=== PATIENT | male | born 1950 | race Caucasian/White ===

== ENCOUNTER 2018-03-08 11:14 | Emergency (ER) | payer MEDICARE, OTHER ==
[~2018-03-08 11:14] MED LIST: ISOVUE-370 76%-LOCM 1 ML ONE
--- NOTE | 2018-03-08 12:13 | RAD ---
UPRIGHT PORTABLE CHEST 1 VIEW: Date: 03/08/18 HISTORY: 67-year-old male with history of fever, chills, decreased appetite. Patient feels weak. COMPARISON: 09/04/16. FINDINGS: Postop midline sternotomy. Increased linear and interstitial markings bilaterally, particularly in th e mid and lower lung zones, with little overall change from the prior 09/04/16 study. No confluent pn eumonia or pleural effusion. No cardiomegaly. IMPRESSION: Overall stable increased interstitial markings bilaterally. No confluent pneumonia. POS: [facility]
[2018-03-08 12:38] LABS: ALT (SGPT) 11 U/L (8-55); AST (SGOT) 16 U/L (5-34); Albumin 3.7 g/dL (3.4-4.8); Alkaline Phosphatase 70 U/L (40-150); Anion Gap 14 mmol/L (10-20); BUN (Urea Nitrogen) 11 mg/dL (8.4-25.7); Bilirubin, Total 0.5 mg/dL (0.2-1.2); CK (CPK) 25 U/L (30-200); Calc. Creatinine Clearance 0 mL/min (70-130); Carbon Dioxide 27 mmol/L (23-31); Chloride 98 mmol/L (98-107); Estimated GFR-MDRD Greater than 90; Globulin 3.6 g/dL (2.4-3.5); Glucose 150 mg/dL (80-115); Potassium 3.8 mmol/L (3.5-5.1); Protein, Total 7.3 g/dL (5.8-8.1); Sodium 135 mmol/L (136-145)
[2018-03-08 12:41] LABS: CKMB 0.8 ng/mL (0-6.6); Troponin I Less than 0.010 ng/mL (< 0.028)
[2018-03-08 12:42] LABS: Hemoglobin 13.4 g/dL (14.0-18.0); Mean Corpuscular HGB CONC 33.7 g/dL (32.0-36.0); Mean Corpuscular Hemoglobin 31.9 pg (27.0-31.0); Mean Corpuscular Volume 94.6 fl (80.0-94.0); Mean Platelet Volume 7.7 fL (7.4-10.4); Platelet Count 296 thou/uL (130-400); RBC Distribution Width 10.8 % (11.5-14.5)
[2018-03-08] MEDS ORDERED: Metoclopramide HCl 10 MG/2 ML VIAL ONE (12:52)
[2018-03-08] MEDS ORDERED: Dicyclomine 20 MG TAB ONE (12:52)
[2018-03-08] MEDS ORDERED: diphenhydrAMINE 50 MG/ML VIAL ONE (12:52)
[2018-03-08 12:56] LABS: Band 33 % (5-11); Eosinophils 2 % (0-10); Lymphocytes 12 % (21-51); MDiff Complete? YES; Monocytes 5 % (0-10); Myelocyte 1 % (0-0); Neutrophil 43 % (42-75); PLT Morphology Comment Appears Adequate; Reactive Lymphocytes 4 % (0-10); Toxic Granulation SLIGHT
[2018-03-08] MEDS ORDERED: HYDROcodone/Acetaminophen 5/325 mg Tablet ONE (14:13)
--- NOTE | 2018-03-08 14:13 | CT ---
BRAIN CT WITHOUT IV CONTRAST: HISTORY: A 67-year-old male with a history of headache and fever. COMPARISON: 12/23/06. FINDINGS: There is some age-related atrophy and chronic white matter ischemic change. There is an area of ence phalomalacia in the right temporoparietal region, evidence for old infarct change. No significant m ass effect or midline shift. No acute hemorrhage. IMPRESSION: Encephalomalacic changes right posterior temporal and parietal region, evidence for old infarct hernandez e. Minimal atrophy and chronic white matter ischemic change. No mass or bleed or other acute proces s. POS: [facility]
[2018-03-08 15:00] LABS: Bilirubin Negative (Negative); Blood, Urine Negative (Negative); Clarity CLEAR (Clear); Glucose, Urine (Dipstick) Negative (Negative); Leukocyte Negative (Negative); Nitrite Negative (Negative); Protein, Urine (Dipstick) Negative (Neg-Trace)
--- NOTE | 2018-03-08 15:42 | CT ---
CT ABDOMEN AND PELVIS WITH IV CONTRAST: Date: 03-08-18 History: Nausea and diarrhea. Intermittent abdominal pain for the past few weeks. Comparison: None available. FINDINGS: Prominent vascular calcifications seen of the coronary arteries as well as calcification seen in the region of the left atrium. Median sternotomy wires are partially imaged. Small thin walled cysts seen at the right lower lobe with mild linear bibasilar atelectasis or scarri ng. Vascular calcifications are seen in the abdominal aorta and involving the iliac arteries. The liver, spleen, pancreas, bilateral adrenal glands, and kidneys demonstrate a normal CT appearance . There is a punctate calcification adjacent to the common duct within the pancreatic head of uncerta in etiology. This does not appear to represented calcification within the common duct and may be rela braydon to calcification in the pancreas secondary to prior pancreatitis. Urinary bladder is partially distended and demonstrates a normal CT appearance. No free fluid, fluid collection or lymphadenopathy is seen in the abdomen or pelvis. The small bowel is normal in caliber. Degenerative changes are seen in the lumbar spine. IMPRESSION: 1. No acute findings are seen in the abdomen or pelvis. 2. Prominent vascular calcifications as well as prominent calcifications at the periphery of the left atrium of uncertain etiology. 3. Punctate calcification in the region of the pancreatic head adjacent to the common duct which coul d be sequellae of prior pancreatitis. 4. Post-surgical changes as well as degenerative changes involving the lower lumbar spine. POS: [facility]
[2018-03-08 15:53] LABS: Specific Gravity, Urine Greater than 1.060 (1.002-1.036)
--- NOTE | 2018-03-10 14:52 | EKG ---
Test Reason : Blood Pressure : / mmHG Vent. Rate : 079 BPM Atrial Rate : 079 BPM P-R Int : 164 ms QRS Dur : 088 ms QT Int : 398 ms P-R-T Axes : 060 -13 003 degrees QTc Int : 456 ms Normal sinus rhythm Anterior ST-T segment abnormalities seen on EKG from - No acute changes Abnormal ECG Confirmed by KERMIT GARCIA ([id number]), clinical editor AMALIA MADERA ([id number] on 03/10/2018 2:52:00 PM Referred By: Confirmed By:KERMIT GARCIA
== END 2018-03-08 16:00 | disposition home or self-care (01) ==
LOC: ERS 11:14
DX: R11.2 Nausea with vomiting, unspecified (principal); R19.7 Diarrhea, unspecified; E11.9 Type 2 diabetes mellitus without complications; E78.5 Hyperlipidemia, unspecified; I10 Essential (primary) hypertension; F32.9 Major depressive disorder, single episode, unspecified; Z79.899 Other long term (current) drug therapy; Z79.84 Long term (current) use of oral hypoglycemic drugs
CPT/HCPCS: 36415; 70450; 71045; 74177; 80053; 81003; 82550; 82553; 83690; 84484; 85025; 93005; 94760; 96361; 96374; 96375; J1200; J2765

== ENCOUNTER 2018-12-30 00:10 | Outpatient (CLI) | payer MEDICARE, OTHER ==
--- NOTE | 2018-12-30 21:29 | EKG ---
Test Reason : Blood Pressure : / mmHG Vent. Rate : 069 BPM Atrial Rate : 264 BPM P-R Int : 000 ms QRS Dur : 098 ms QT Int : 432 ms P-R-T Axes : 100 005 027 degrees QTc Int : 462 ms Atrial flutter with variable A-V block Prolonged QT Abnormal ECG When compared with ECG of 08-MAR-2018 11:20, Atrial flutter has replaced Sinus rhythm ST no longer depressed in Anterior leads Nonspecific T wave abnormality no longer evident in Inferior leads T wave inversion no longer evident in Anterolateral leads Confirmed by AMBROSIO SENA, SCoral ([id number]) on 12/30/2018 9:28:55 PM Referred By: ANKITA Confirmed By:DR. Rebecca VALENTE MD
== END 2018-12-30 00:11 | disposition home or self-care (01) ==
LOC: LABBT 00:10
PROVIDERS: ATTEND Orthopaedic Surgery
DX: Z01.818 Encounter for other preprocedural examination (principal); M16.12 Unilateral primary osteoarthritis, left hip
CPT/HCPCS: 93005; 93010

== ENCOUNTER 2018-12-30 12:30 | Inpatient (IN) | payer MEDICARE, OTHER ==
[2018-12-30 13:35] LABS: #Basophils 0.1 thou/uL (0.0-0.2); #Eosinphils 0.2 thou/uL (0.0-0.7); #Lymphocytes 1.6 thou/uL (1.20-3.40); #Neutrophils 3.6 thou/uL (1.40-6.50); %Basophils 1.2 % (0.0-1.0); %Eosinophils 2.9 % (0.0-10.0); %Lymphocytes 24.4 % (21.0-51.0); %Monocytes 14.9 % (0.0-10.0); %Neutrophils 56.6 % (42.0-75.0); Hemoglobin 15.2 g/dL (14.0-18.0); Mean Corpuscular HGB CONC 33.4 g/dL (32.0-36.0); Mean Corpuscular Hemoglobin 33.1 pg (27.0-31.0); Mean Corpuscular Volume 99.1 fL (78.0-98.0); Mean Platelet Volume 8.3 fL (7.4-10.4); Platelet Count 189 thou/uL (130-400); RBC Distribution Width 10.9 % (11.5-14.5); White Blood Cell (WBC) Count 6.4 thou/uL (4.8-10.8)
[2018-12-30 13:41] LABS: INR-International Normal Ratio 1.2; Prothrombin Time 14.9 SEC (12.0-14.7)
[2018-12-30 13:57] LABS: Anion Gap 12 mmol/L (10-20); BUN (Urea Nitrogen) 12 mg/dL (8.4-25.7); Calc. Creatinine Clearance 0 mL/min (70-130); Calcium 9.8 mg/dL (7.8-10.44); Carbon Dioxide 27 mmol/L (23-31); Chloride 104 mmol/L (98-107); Estimated GFR-MDRD Greater than 90; Glucose 123 mg/dL (80-115); Potassium 4.3 mmol/L (3.5-5.1); Sodium 139 mmol/L (136-145)
[2019-01-04] MEDS ORDERED: Tranexamic Acid 1,000 MG/10 ML VIAL ONE (05:50)
[2019-01-04] MEDS ORDERED: Sodium Chloride 0.9% 100 ML ONE (05:50)
[2019-01-04] MEDS ORDERED: Vancomycin HCl 1.5 GM in Sodium Chloride 0.9% 250 ML 300 ML IVPB SCH (06:15)
[2019-01-04] MEDS ORDERED: Midazolam HCl 2 mg/2 ml Vial ONE (06:37)
[2019-01-04] MEDS ORDERED: Fentanyl 100 MCG/2 ML VIAL ONE ×2 (06:37→09:11)
[2019-01-04] MEDS ORDERED: Lidocaine 1.5% w/Epi 1:200K 30 ML VIAL (Epid Use) ONE (06:38)
[2019-01-04] MEDS ORDERED: Ropivacaine 0.2% HCl/PF 20 ML ONE (07:35)
[2019-01-04] MEDS ORDERED: Acetaminophen 325 MG TAB PO PRN (08:53)
[2019-01-04] MEDS ORDERED: Promethazine HCl 25 MG/ML VIAL IM PRN ×4 (08:53→10:00)
[2019-01-04] MEDS ORDERED: HYDROcodone/Acetaminophen 10/325 mg Tablet PO PRN ×2 (08:53)
[2019-01-04] MEDS ORDERED: diphenhydrAMINE 25 MG CAP PO PRN ×3 (08:53→10:00)
[2019-01-04] MEDS ORDERED: traMADol HCl 50 MG TAB PO PRN ×2 (08:53→10:00)
[2019-01-04] MEDS ORDERED: Zolpidem Tartrate 5 MG TAB PO PRN ×2 (08:53→10:00)
[2019-01-04] MEDS ORDERED: Ondansetron PF 4 MG/2 ML Vial IVP PRN ×2 (08:53→10:00)
[2019-01-04] MEDS ORDERED: Cyclobenzaprine 10 MG TAB PO PRN (08:55)
[2019-01-04] MEDS ORDERED: Aspirin 81 mg Enteric Coated Tablet PO SCH (09:00)
[2019-01-04] MEDS ORDERED: Promethazine HCl 25 MG/ML VIAL SLOW IVP PRN ×2 (09:01→09:02)
[2019-01-04] MEDS ORDERED: Fentanyl 5 mcg/Bup 0.075% Cadd 100 ML EPIDURAL ONE (09:01)
[2019-01-04] MEDS ORDERED: Ondansetron HCl/PF 4 MG/2 ML Vial IVP PRN ×2 (09:01→09:02)
--- NOTE | 2019-01-04 09:38 | RAD ---
Exam: Left hip 2 views: HISTORY: Postop total hip COMPARISON: 09/24/2018 FINDINGS: Status post total hip replacement. No dislocation or periprostatic fracture. IMPRESSION: Left total hip replacement.
[2019-01-04] MEDS ORDERED: Acetaminophen 500 MG TAB PO PRN (09:45)
[2019-01-04] MEDS ORDERED: Promethazine HCl 25 MG SUPP PR PRN (10:00)
[2019-01-04] MEDS ORDERED: Naloxone HCl 0.4 mg/ml Vial IVP PRN (10:00)
[2019-01-04] MEDS ORDERED: diphenhydrAMINE 50 MG/ML VIAL IVP PRN (10:00)
[2019-01-04] MEDS ORDERED: diphenhydrAMINE 50 MG/ML VIAL IM PRN (10:00)
[2019-01-04] MEDS ORDERED: Hydrocerin (Eucerin) Cream 120 gm Jar TOP PRN (10:00)
[2019-01-04] MEDS ORDERED: Bupivacaine 0.25% 10 ML VIAL EPIDURAL PRN (10:00)
[2019-01-04] MEDS ORDERED: Naloxone HCl 0.4 mg/ml Vial IV PRN (10:00)
--- NOTE | 2019-01-04 10:44 | OP ---
DATE OF PROCEDURE: 01/04/2019 PREOPERATIVE DIAGNOSIS: End-stage bicompartmental osteoarthritis, left hip. POSTOPERATIVE DIAGNOSIS: End-stage bicompartmental osteoarthritis, left hip. PROCEDURE PERFORMED: Press-fit left total hip arthroplasty. SURGEON: Lb Figueroa MD STEEP TENDER: Zeeshan Groves PA-C ANESTHESIA: General via endotracheal tube augmented with indwelling epidural. COMPONENTS USE: [facility] Tritanium size 54 mm press-fit hemispherical cluster hole shell with a 3.5 Accolade press-fit hip stem, 10-degree polyethylene fixed bearing insert, and a -5 ceramic Biolox 36 mm femoral head. FINDINGS: End-stage severe degenerative bicompartmental disease, [id number] arthrosis, periarticular osteophyte formation, large serous effusion, hypertrophic synovium and capsule. DRAINS: None. ESTIMATED BLOOD LOSS: Less than 100. SPECIMENS: None. COMPLICATION: None. COUNTS: Correct. INDICATIONS FOR PROCEDURE: Obdulio is a 68-year-old white male, who has had progressive left hip, groin and thigh pain, problem with standing and walking for the last 5 to 7 years. He has failed conservative management and elected to proceed with total hip arthroplasty as definitive treatment of his pain. PROCEDURE IN DETAIL: After informed consent was obtained in the preoperative holding area, the patient was taken to the operative suite where general anesthesia was induced. The patient was then positioned in the lateral decubitus position. The hip was then prepped and draped in usual sterile fashion. The patient received preoperative antibiotics. Prior to incision, time-out was called and all members of the surgical team agreed upon site, surgeon, and patient. After this, a longitudinal incision was made directly over the trochanter, noted by palpation extending 2 fingerbreadths above and below the trochanter. The deeper subcutaneous layer was undermined with Bovie electrocautery. The iliotibial band was encountered and incised sharply and the plane below this was developed bluntly. A Charnley retractor was placed to hold this opened. The lateral aspect of the trochanter and the abductor muscles were encountered and then reflected anteriorly off the trochanter using Bovie electrocautery. Once this was completed, the anterior capsule was then encountered and identified and copious capsulotomy was carried out, exposing the femoral neck and head. Dislocation maneuver was then performed and an in situ provisional neck cut was then made using the oscillating saw. Attention was then turned to acetabular preparation. Sequential reaming was carried out up to the appropriate diameter and a trial was then malleted into place with good firm resistance and no pullout. The permanent acetabular shell was then malleted squarely into place, as was the appropriate liner. Once completed, the wound was copiously irrigated and attention was then turned to femoral preparation. Flexion and external rotation were performed of the exposed thigh and femoral elevators were then placed at the proximal aspect of the wound. Canal finder was used to establish the length of the canal and sequential reaming was carried out, followed by broaching. Once the appropriate stability was established with the trial broaches with flexion, extension and rotational stability, we did trial with neutral and 2 mm offset incremental necks. Once the appropriate size was decided upon, with good stability noted with flexion, extension, internal and external rotation and shuck being negative, we removed the femoral trial broach and malletted into place the permanent prosthesis with good firm fit, which was also stable to rotation. Again, the hip felt very stable to flexion, extension, internal and external rotation. Leg lengths appeared near anatomic clinically and we were quite happy with prosthesis placement. Copious irrigation was then carried out through the entirety of the wound. Primary closure of the abductors was accomplished with interrupted #2 Vicryl [id number]-oj-iimad stitches and the IT band was then closed with interrupted #2 Vicryl, oversewn with a #2 running barbed Quill stitch. Subcutaneous fascia was closed with running barbed Quill stitch and a subcuticular Monocryl barbed Quill stitch was used for skin closure and augmented with skin cement. A sterile dressing was applied. The procedure was terminated without any complication. All counts were correct. The patient was awakened in the operative suite and taken to the recovery room in stable condition. Job ID: [id number]
[2019-01-04] MEDS: Sodium Chloride 0.9% 1,000 ML IV SCH ×2 (11:15→20:33)
[2019-01-04] MEDS: Carvedilol 25 MG TAB PO SCH ×2 (11:18→20:29)
[2019-01-04] MEDS: Bupropion 150 MG XL TAB PO SCH (11:18)
[2019-01-04] MEDS ORDERED: Ondansetron PF 4 MG/2 ML Vial ONE (13:08)
[2019-01-04] MEDS ORDERED: Lidocaine 1% PF 5 ML VIAL ONE (13:08)
[2019-01-04] MEDS ORDERED: Glycopyrrolate 0.2 MG/ML 5 ML SYRINGE ONE (13:08)
[2019-01-04] MEDS ORDERED: ePHEDrine 50 MG/ML VIAL ONE (13:08)
[2019-01-04] MEDS ORDERED: Rocuronium Bromide 10 MG/ML (10ML VIAL) ONE (13:08)
[2019-01-04] MEDS: Cyanocobalamin (Vitamin B-12) 1,000 MCG TAB PO SCH ×2 (13:36→20:31)
[2019-01-04] MEDS: Aspirin 81 mg Enteric Coated Tablet PO SCH ×2 (13:36→20:28)
[2019-01-04] MEDS: Ubidecarenone 50 MG CAP PO SCH (13:36)
[2019-01-04] MEDS: CEFAZOLIN 2 GM in Premix Bag 1 BAG IVPB SCH ×2 (14:07→21:10)
[2019-01-04] MEDS: HYDROcodone/Acetaminophen 5/325 mg Tablet PO PRN ×2 (14:54→21:09)
[2019-01-04] MEDS: traMADol HCl 50 MG TAB PO PRN ×2 (16:46→23:37)
[2019-01-04] MEDS: metFORMIN 500 MG TAB PO SCH (16:57)
[2019-01-04] MEDS ORDERED: Melatonin 3 MG TAB PO PRN (17:05)
[2019-01-04] MEDS: Cyclobenzaprine 10 MG TAB PO PRN (18:34)
[2019-01-04] MEDS: Lisinopril 5 MG TAB PO SCH (20:30)
[2019-01-04] MEDS: CeleCOXIB 100 MG CAP PO SCH (20:40)
[2019-01-04] MEDS: Citrucel 500 MG TAB PO SCH (21:07)
[2019-01-04] MEDS: Zonisamide 25 MG CAP PO SCH (21:08)
--- NOTE | 2019-01-04 23:39 | CON ---
DATE OF CONSULTATION: 01/04/2019 HISTORY OF PRESENT ILLNESS: The patient is a 68-year-old male, status post left hip arthroplasty for osteoarthritis. The patient reports that he was not able to ambulate due to the pain over the last 5 to 7 years. He has failed conservative management and elected to proceed with total hip arthroplasty as a definitive treatment of his pain. The patient had an uncomplicated procedure, and was transferred up to the third floor for routine postop care. The patient reports that he is in significant amount of pain to his left hip and no other complaints currently. PAST MEDICAL HISTORY: Hypertension, atrial fibrillation, diabetes, anxiety, chronic pain, and osteoarthritis. PAST SURGICAL HISTORY: Previous vertebral fusion 1986 and a three-vessel CABG in 2006. FAMILY HISTORY: Significant for multiple myeloma in his father. Mother healthy in her 90s SOCIAL HISTORY: The patient reported to be a former tobacco user of 18 years; however, he quit about 15 years previously. He reports social alcohol use, usually wine. The patient denies any recreational drugs. HOME MEDICATIONS: 1. Aspirin 81 mg. 2. Garlic 1000 mg p.o. daily. 3. Beetroot 4000 daily. 4. CoQ10 at 300 mg p.o. daily. 5. Glucosamine and chondroitin 1 tablet p.o. daily. 6. Fiber 500 mg p.o. q.p.m. 7. [place] 5/325 one to two tablets p.o. q.6 hours p.r.n. 8. Cyclobenzaprine 5 mg p.o. p.r.n. 9. Tramadol 50 mg p.o. p.r.n. 10. Tylenol Extra Strength one tablet p.o. at bedtime p.r.n. 11. Bupropion 300 mg p.o. q.a.m. 12. Lisinopril 5 mg p.o. q.p.m. 13. Metformin 500 mg p.o. b.i.d. 14. Omeprazole 40 mg p.o. q.p.m. 15. Zonisamide 50 mg p.o. at bedtime. 16. Diltiazem 180 mg p.o. q.p.m. 17. Carvedilol 25 mg p.o. b.i.d. 18. Pradaxa 150 mg p.o. b.i.d. 19. Celebrex 200 mg p.o. q.p.m. 20. Vitamin B12 at 5000 mcg p.o. b.i.d. REVIEW OF SYSTEMS: A 12-point review of systems was otherwise negative unless stated above in the HPI. PHYSICAL EXAMINATION: VITAL SIGNS: Blood pressure 158/80, oxygen saturation of 97% on room air, pulse was 67. No temperature is available. GENERAL: Male, appears stated age, resting in bed, appears to be in moderate amount of pain. HEENT: Normocephalic and atraumatic. CV: Irregular rhythm with regular rate. No murmurs. RESPIRATORY: Clear lungs to auscultation bilaterally. No wheezing. ABDOMEN: Soft and nontender. Bowel sounds are present. EXTREMITIES: Surgical bandage is clean, dry, intact to his left lateral hip region. No edema or erythema present. NEUROLOGIC: No focal deficits. Able to move all 4 extremities. PSYCH: Alert and oriented. SIGNIFICANT LABORATORY DATA: Significant labs: White blood cell count 6.4, hemoglobin 15.2, hematocrit 45.6, and platelet count 189. He had a PT of 14.9 and INR of 1.2. Sodium 139, potassium 4.3, chloride 104, bicarbonate 27, BUN 12, creatinine 0.69, glucose 123, and a calcium of 9.8. ASSESSMENT: 1. Status post left total hip arthroplasty. I will defer management to primary orthopedic team and Dr. Lb Figueroa. Pain control and PT ordered. 2. Hypertension. We will continue his home medications and monitor for any acute changes in blood pressure. He is likely experiencing some elevated blood pressure secondary to pain. Once his pain is under better control, we believe his blood pressure will normalize. 3. Atrial fibrillation. We will resume his home medications; however, we will hold his anticoagulation for today and we will determine restarting his anticoagulation in the near future when recommended safe. 4. Diabetes mellitus. We will continue his metformin. We will check a.c. and at bedtime Accu-Cheks. If well controlled will make no changes for a sliding scale and recommend further followup as an outpatient. 5. Unspecified mood disorder. We will continue his bupropion. PLAN: The patient will be admitted as an inpatient under Dr. Figueroa. This case has been discussed with Dr. Yeyo Hilario, the family practice consulting attending, who is in agreement with our plan. Thank you for allowing us to participate in this patient's care and we look forward to continuing care. Job ID: [id number] MTDOleg
[2019-01-04] MEDS: Fentanyl 5 mcg/Bup 0.075% Cadd 100 ML EPIDURAL SCH (23:57)
[2019-01-05] MEDS: HYDROcodone/Acetaminophen 5/325 mg Tablet PO PRN ×2 (02:04→20:47)
[2019-01-05 04:53] LABS: Mean Corpuscular HGB CONC 32.8 g/dL (32.0-36.0); Mean Corpuscular Hemoglobin 32.5 pg (27.0-31.0); Mean Corpuscular Volume 99.2 fL (78.0-98.0); Mean Platelet Volume 8.4 fL (7.4-10.4); Platelet Count 140 thou/uL (130-400); RBC Distribution Width 10.8 % (11.5-14.5); Red Blood Cell (RBC) Count 4.01 mill/uL (4.70-6.10); White Blood Cell (WBC) Count 8.7 thou/uL (4.8-10.8)
[2019-01-05] MEDS: traMADol HCl 50 MG TAB PO PRN (05:27)
[2019-01-05] MEDS: Cyclobenzaprine 10 MG TAB PO PRN (05:28)
[2019-01-05] MEDS: Sodium Chloride 0.9% 1,000 ML IV SCH ×2 (05:29→19:57)
--- NOTE | 2019-01-05 06:17 | PDOC.FM ---
- Subjective Subjective: Obdulio Gooden seen at bedside this morning. Became tachycardic overnight and EKG was done that showed possible atrial flutter. Dr. Faustin has been notified by the primary team and will come see patient. He is in NSR this morning. Pain adequately controlled. Denies fever, chills, chest pain, dyspnea, n/v. - Objective MAR Reviewed: Yes Vital Signs & Weight: Vital Signs (12 hours) Temp Pulse Resp BP BP Pulse Ox 01/05/19 04:00 98.7 F 101 H 18 135/82 92 L 01/05/19 01:09 128 H 155/96 H 01/04/19 23:24 98.6 F 123 H 18 156/107 H 95 01/04/19 20:30 98.4 F 125 H 16 165/111 H 165/111 H 93 L 01/04/19 18:45 98.4 F Weight Weight 86.183 kg Result Diagrams: 01/05/19 04:19 12/30/18 12:30 Phys Exam - Physical Examination Constitutional: NAD HEENT: moist MMs, sclera anicteric Neck: supple, full ROM Respiratory: no wheezing, no rales, no rhonchi, clear to auscultation bilateral Cardiovascular: RRR, no significant murmur Gastrointestinal: soft, non-tender, no distention Musculoskeletal: pulses present Neurological: non-focal, normal sensation, moves all 4 limbs Psychiatric: normal affect, A&O x 3 Skin: no rash Dx/Plan (1) History of total left hip arthroplasty Code(s): Z96.642 - PRESENCE OF LEFT ARTIFICIAL HIP JOINT Status: Acute (2) Hypertension Code(s): I10 - ESSENTIAL (PRIMARY) HYPERTENSION Status: Chronic (3) Type 2 diabetes mellitus Status: Chronic (4) Atrial fibrillation Code(s): I48.91 - UNSPECIFIED ATRIAL FIBRILLATION Status: Chronic (5) GERD (gastroesophageal reflux disease) Code(s): K21.9 - GASTRO-ESOPHAGEAL REFLUX DISEASE WITHOUT ESOPHAGITIS Status: Chronic (6) Anxiety Code(s): F41.9 - ANXIETY DISORDER, UNSPECIFIED Status: Chronic - Plan Plan: 1) S/p left hip arthroplasty: 01/04/19 - Post Op Management and pain control per primary team - likely d/c tomorrow per primary team 2) Hypertension - Resuming home medications - Monitoring BPs closely 3) DM2 - Resuming home medications - Accuchecks ACHS 4) A fib - episodes of a flutter overnight - likely secondary to post procedural pain and elevated BPs - resuming home diltiazem - continue to monitor - starting lovenox today, will restart pradaxa tomorrow 5) Anxiety - home meds 6) GERD - protonix
--- NOTE | 2019-01-05 08:34 | PRG ---
DATE OF SERVICE: 01/05/2019 SUBJECTIVE: Obdulio is a 68-year-old white male who is postop day 1 from a left total hip arthroplasty. He had a rough night last night. His epidural is functioning, but I am not sure how much benefit it is providing him currently. Discussion with the nursing staff reveals that the patient was reluctant to take his oral medications yesterday evening, and I believe later in the evening and afternoon, he got behind on the pain curve and had a difficult night probably as a result of this. He refused his medication on a couple of occasions and I think his blood levels got little low. Otherwise, he did go in and out of some atrial flutter last night with rates of 130 to 140. EKG was ordered, which demonstrated atrial flutter with a partial block or conduction block, rate of 98. His blood pressures have been up into the 150 to 160 systolic. He was seen by resident physicians yesterday evening and Dr. Mathew also evaluated the patient. He maintained stable vitals throughout the night and I believe ultimately his pain was brought under control with oral medications. OBJECTIVE: VITAL SIGNS: Temperature 98.7, pulse 101, respiratory rate 18 and unlabored, O2 saturation is 92% on room air, and blood pressure is 135/82. GENERAL: He is alert and oriented to person, place, time, and situation, grossly nonfocal, appropriate with examiner. There is no strike through in his incision and he is neurovascular intact in the left lower extremity. LABORATORY DATA: Hemoglobin and hematocrit 13.0 and 39.8. IMPRESSION: 1. A 68-year-old white male, postop day 1, left total hip arthroplasty, doing very well. 2. Pain secondary to left total hip arthroplasty. 3. Atrial flutter with variable block. 4. Mild postoperative hemorrhagic asymptomatic anemia. PLAN: 1. Continue current care. 2. Call Dr. Faustin just to drop and say how did the patient today as a courtesy, then to check in on atrial flutter. 3. Appreciate the residents seeing the patient last night and addressing the patient and family concerns. 4. Recheck tomorrow. Probable discharge home as long as he remains comfortable throughout the rest of his hospital stay. 5. Initiate physical therapy. Job ID: [id number]
[2019-01-05] MEDS ORDERED: Dabigatran 150 mg Capsule PO SCH (09:00)
[2019-01-05] MEDS ORDERED: Enoxaparin Sodium 40 MG/0.4 ML SYRINGE SC SCH (09:30)
[2019-01-05] MEDS: Ubidecarenone 50 MG CAP PO SCH (09:38)
[2019-01-05] MEDS: Cyanocobalamin (Vitamin B-12) 1,000 MCG TAB PO SCH ×2 (09:38→20:40)
[2019-01-05] MEDS: metFORMIN 500 MG TAB PO SCH ×2 (09:40→17:11)
[2019-01-05] MEDS: Bupropion 150 MG XL TAB PO SCH (09:40)
[2019-01-05] MEDS: Multivitamin W/ Minerals 1 TAB PO SCH (09:40)
[2019-01-05] MEDS: Senokot S 8.6-50 MG TAB PO SCH ×2 (09:40→20:44)
[2019-01-05] MEDS: Aspirin 81 mg Enteric Coated Tablet PO SCH ×2 (09:40→20:38)
[2019-01-05] MEDS: Carvedilol 25 MG TAB PO SCH ×2 (09:40→20:39)
[2019-01-05] MEDS: Ferrous Gluconate 324 MG TAB PO SCH ×2 (09:41→17:11)
[2019-01-05] MEDS: CeleCOXIB 100 MG CAP PO SCH (10:50)
--- NOTE | 2019-01-05 11:11 | PRG ---
DATE OF SERVICE: 01/05/2019 SUBJECTIVE: Mr. Gooden is a pleasant 68-year-old man, who underwent a left hip arthroplasty replacement yesterday. We have been asked to follow his atrial fibrillation and blood pressure. This morning, he is actually slightly hypotensive with a systolic blood pressure of 90. He had a run of atrial flutter during the night, but is now in normal sinus rhythm with a rate of 65. We may want to switch his Coreg to metoprolol if he remains with a systolic blood pressure under 100. We would still get good control of atrial fibrillation without diminishing his blood pressure as much as the Coreg. In the event clinically, he is not lightheaded. He is not having any chest discomfort. We will continue to follow with the surgical team. Job ID: [id number]
[2019-01-05] MEDS: Fentanyl 5 mcg/Bup 0.075% Cadd 100 ML EPIDURAL SCH (16:51)
--- NOTE | 2019-01-05 17:08 | EKG ---
Test Reason : STAT Blood Pressure : / mmHG Vent. Rate : 098 BPM Atrial Rate : 267 BPM P-R Int : 000 ms QRS Dur : 098 ms QT Int : 284 ms P-R-T Axes : 000 018 250 degrees QTc Int : 362 ms Atrial flutter with variable A-V block Abnormal ECG When compared with ECG of 30-DEC-2018 12:40, Non-specific change in ST segment in Inferior leads ST now depressed in Anterior leads Nonspecific T wave abnormality now evident in Inferior leads T wave inversion now evident in Anterolateral leads QT has shortened Confirmed by Susy BATEMAN ([id number]) on 01/05/2019 5:08:00 PM Referred By: LAURA JUAN Confirmed By:Susy BATEMAN
--- NOTE | 2019-01-05 20:38 | CON ---
DATE OF CONSULTATION: 01/05/2019 REASON FOR CONSULTATION: Atrial flutter. HISTORY OF PRESENT ILLNESS: Mr. Gooden is a pleasant 68-year-old white gentleman, who comes to the hospital for planned hip replacement. He had been dealing with osteoarthritis of the hip for several years now. Pain was unbearable, so he underwent hip replacement on the 9th of this month, this was yesterday. He did well. Earlier this morning, he developed tachycardia, heart rate in the 150s. EKG was done, showed atrial flutter with variable AV block. He does have a history of atrial fibrillation, but not atrial flutter. He has been on a lot of pain, who is having trouble controlling the pain. He had bypass in the past with left atrial appendage ligation. He has been on Pradaxa all this time as he has never had a re-evaluation of appendage to see if he was completely occluded and in fact required or not anticoagulation. Currently, he denies any chest pain, tightness, or pressure. No palpitations. Heart rate is back down to 60s, but he remained in atrial flutter last time when EKG was checked. PAST MEDICAL HISTORY: 1. Coronary artery disease, status post CABG. 2. History of paroxysmal atrial fibrillation. 3. Osteoarthritis. 4. Hypertension. 5. Anxiety and depression. 6. Type-2 diabetes. PAST SURGICAL HISTORY: 1. Vertebral fusion in 1996. 2. 3-vessel CABG in 2006. 3. Left atrial appendage ligation at the same time, this was done by Dr. Zayas. FAMILY HISTORY: No early coronary artery disease. SOCIAL HISTORY: Former tobacco user, quit about 15 years ago. Social alcohol. No drugs. OUTPATIENT MEDICATIONS: Include: 1. Aspirin 81 a day. 2. Garlic. 3. Beetroot. 4. CoQ10. 5. Glucosamine. 6. Fiber. 7. [place] 5/325 p.r.n. 8. Cyclobenzaprine. 9. Tramadol. 10. Tylenol Extra Strength. 11. Bupropion. 12. Lisinopril 5 mg a day. 13. Metformin 500 mg b.i.d. 14. Omeprazole. 15. Zonisamide. 16. Diltiazem 180 mg q.p.m. 17. Carvedilol 25 mg b.i.d. 18. Pradaxa 150 mg b.i.d. 19. Celebrex. 20. Vitamin B12. REVIEW OF SYSTEMS: A 12-point review of systems was done and was found to be negative unless stated in the history of present illness. PHYSICAL EXAMINATION: VITAL SIGNS: Temperature 98.4, pulse 87, respiratory rate 18, saturating 95% on room air, blood pressure 107/70. GENERAL: Awake, alert, and oriented x3, in no distress. HEENT: Normocephalic, atraumatic. NECK: Supple. LUNGS: Clear. CARDIOVASCULAR: S1 and S2. No S3 or S4. Irregular; however, heart rate in the 60s. ABDOMEN: Soft. Positive bowel sounds. EXTREMITIES: No edema. SKIN: Warm and dry. DIAGNOSTIC DATA: Laboratory work was reviewed. CBC was reviewed. Coags and chemistries were reviewed. EKG was reviewed, atrial flutter with variable AV block. ASSESSMENT AND PLAN: 1. Atrial flutter with variable AV block. This is a new diagnosis. 2. History of paroxysmal atrial fibrillation. 3. History of left atrial appendage ligation during his bypass. 4. History of coronary artery disease, stable at this time. 5. Status post hip replacement. PLAN: 1. Plan is currently to discontinue his pain pump tomorrow and then start full anticoagulation 4 hours afterwards with Pradaxa. I think this is reasonable. Will wait on that to happen, if he remains in atrial flutter tomorrow, we will plan on doing a YING cardioversion on Thursday. 2. We will follow. Job ID: [id number]
[2019-01-05] MEDS: Citrucel 500 MG TAB PO SCH (20:39)
[2019-01-05] MEDS: Dabigatran 150 mg Capsule PO SCH (20:42)
[2019-01-05] MEDS: Lisinopril 5 MG TAB PO SCH (20:43)
[2019-01-05] MEDS: Zonisamide 25 MG CAP PO SCH (20:45)
[2019-01-06] MEDS: Sodium Chloride 0.9% 1,000 ML IV SCH ×3 (04:04→21:20)
[2019-01-06 05:05] LABS: Hemoglobin 12.6 g/dL (14.0-18.0); Mean Corpuscular Hemoglobin 32.5 pg (27.0-31.0); Mean Corpuscular Volume 98.6 fL (78.0-98.0); Mean Platelet Volume 8.8 fL (7.4-10.4); Platelet Count 135 thou/uL (130-400); RBC Distribution Width 10.8 % (11.5-14.5); Red Blood Cell (RBC) Count 3.88 mill/uL (4.70-6.10); White Blood Cell (WBC) Count 8.8 thou/uL (4.8-10.8)
--- NOTE | 2019-01-06 06:33 | PDOC.FM ---
- Subjective Subjective: Obdulio Gooden seen at bedside this morning. He has no complaints, there were no acute events overnight. He remains in a flutter with variable AV block, become tachycardic again overnight but HR is wnl this morning. He has been participating with PT well. Pain pump is being discontinued this morning. He denies fever, chills, chest pain, dyspnea, n/v, abdominal pain, LE edema. - Objective MAR Reviewed: Yes Vital Signs & Weight: Vital Signs (12 hours) Temp Pulse Resp BP Pulse Ox 01/06/19 04:00 98.3 F 77 20 97/62 94 L 01/06/19 00:00 98.3 F 98 20 117/79 95 01/05/19 20:43 87 01/05/19 20:00 97.5 F L 110 H 20 116/79 95 Weight Admit Weight 86.183 kg Weight 86.183 kg I&O: 01/04/19 01/05/19 01/06/19 06:59 06:59 06:59 Intake Total 2760 Output Total 2025 Balance 735 Result Diagrams: 01/06/19 04:20 12/30/18 12:30 Phys Exam - Physical Examination Constitutional: NAD HEENT: moist MMs, sclera anicteric Neck: supple, full ROM Respiratory: no wheezing, no rales, no rhonchi, clear to auscultation bilateral Cardiovascular: no significant murmur, no rub irregular rhythm, normal rate Gastrointestinal: soft, non-tender, no distention Musculoskeletal: no edema, pulses present Neurological: non-focal, normal sensation, moves all 4 limbs Psychiatric: normal affect, A&O x 3 Skin: no rash Dx/Plan (1) History of total left hip arthroplasty Code(s): Z96.642 - PRESENCE OF LEFT ARTIFICIAL HIP JOINT Status: Acute (2) Hypertension Code(s): I10 - ESSENTIAL (PRIMARY) HYPERTENSION Status: Chronic (3) Type 2 diabetes mellitus Status: Chronic (4) Atrial fibrillation Code(s): I48.91 - UNSPECIFIED ATRIAL FIBRILLATION Status: Chronic (5) GERD (gastroesophageal reflux disease) Code(s): K21.9 - GASTRO-ESOPHAGEAL REFLUX DISEASE WITHOUT ESOPHAGITIS Status: Chronic (6) Anxiety Code(s): F41.9 - ANXIETY DISORDER, UNSPECIFIED Status: Chronic (7) Atrial flutter by electrocardiogram Code(s): I48.92 - UNSPECIFIED ATRIAL FLUTTER Status: Acute - Plan Plan: 1) S/p left hip arthroplasty: 01/04/19 - Post Op Management and pain control per primary team - FMR consulted for medical management, appreciate consult 2) Atrial flutter with variable AV block - New diagnosis - 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 been consulted - will monitor rhythm today and if patient remains in A flutter, may get cardioversion on Thursday - currently on lovenox - will resume full anticoagulation with home pradaxa once pain pump is discontinued 2) Hypertension - Resuming home medications - Monitoring BPs closely 3) DM2 - Resuming home medications - Accuchecks ACHS 4) A fib - likely secondary to post procedural pain and elevated BPs - resuming home diltiazem - continue to monitor - starting pradaxa today 5) Anxiety - home meds 6) GERD - protonix Addendum - Attending - Attending Attestation Date/Time: 01/06/19 2607 I personally evaluated the patient and discussed the management with Dr. Badillo. I agree with and repeated the History, Examination, Assessment and Plan documented above with any addition or exceptions noted below. Asymptomatic from a cardiac standpoint Irregular rhythm; CTAB s w/r/r Being anticoag 4h post epidural pull; continue rate control; await cards for possible CV tomorrow.
[2019-01-06] MEDS: Dabigatran 150 mg Capsule PO SCH ×2 (08:23→13:51)
[2019-01-06] MEDS: Ubidecarenone 50 MG CAP PO SCH (09:07)
[2019-01-06] MEDS: CeleCOXIB 100 MG CAP PO SCH (09:09)
[2019-01-06] MEDS: Cyanocobalamin (Vitamin B-12) 1,000 MCG TAB PO SCH ×2 (09:09→21:19)
[2019-01-06] MEDS: Bupropion 150 MG XL TAB PO SCH (09:09)
[2019-01-06] MEDS: Ferrous Gluconate 324 MG TAB PO SCH ×2 (09:09→18:21)
[2019-01-06] MEDS: Multivitamin W/ Minerals 1 TAB PO SCH (09:12)
[2019-01-06] MEDS: Aspirin 81 mg Enteric Coated Tablet PO SCH ×2 (09:12→21:19)
[2019-01-06] MEDS: Senokot S 8.6-50 MG TAB PO SCH ×2 (09:12→21:09)
[2019-01-06] MEDS: metFORMIN 500 MG TAB PO SCH ×2 (09:12→18:22)
[2019-01-06] MEDS: HYDROcodone/Acetaminophen 5/325 mg Tablet PO PRN ×2 (11:13→19:11)
--- NOTE | 2019-01-06 11:45 | PRG ---
DATE OF SERVICE: 01/06/2019 SUBJECTIVE: Obdulio is postop day 2 from left total hip arthroplasty. He has been seen by Dr. Faustin and his atrial flutter with variable block has still continued to be a problem. Dr. Faustin is going to re-evaluate the patient today and I think he may have a cardioversion with a transesophageal echo planned for the patient. From a rehabilitation standpoint, the patient has been relatively slow to progress. He does have a history of having a stroke and some weakness. OBJECTIVE: VITAL SIGNS: Temperature 98.5, pulse 81, respiratory rate is 14 and nonlabored. O2 saturation 94% on room air. Blood pressure is 111/74. GENERAL: He is alert and oriented. Responsive and appropriate with examiner, but he just looks a little drug out. His incision is clean without strike through. He is neurovascularly intact in the left lower extremity. ASSESSMENT: 1. A 68-year-old white male, postop day 2 left total hip arthroplasty. 2. Postoperative asymptomatic hemorrhagic anemia. 3. Atrial flutter with variable ventricular block, sometimes resulting in tachycardia, symptomatic. PLAN: Dr. Faustin may move the patient to telemetry and plan for cardioversion tomorrow. We will continue to follow. I discussed with the patient and his the possibility of a rehabilitation versus skilled screen and consult. They are amenable to this. Job ID: [id number]
[2019-01-06] MEDS ORDERED: Enoxaparin Sodium 40 MG/0.4 ML SYRINGE SC SCH (12:00)
[2019-01-06] MEDS: Carvedilol 25 MG TAB PO SCH ×2 (13:00→21:19)
[2019-01-06 17:39] LABS: Anion Gap 13 mmol/L (10-20); BUN (Urea Nitrogen) 15 mg/dL (8.4-25.7); Calc. Creatinine Clearance 110 mL/min (70-130); Calcium 10.3 mg/dL (7.8-10.44); Carbon Dioxide 28 mmol/L (23-31); Chloride 100 mmol/L (98-107); Estimated GFR-MDRD Greater than 90; Glucose 145 mg/dL (80-115); Potassium 4.7 mmol/L (3.5-5.1); Sodium 136 mmol/L (136-145)
[2019-01-06] MEDS: Citrucel 500 MG TAB PO SCH (21:06)
[2019-01-06] MEDS: Zonisamide 25 MG CAP PO SCH (21:08)
--- NOTE | 2019-01-06 21:14 | PDOC.CTH ---
Cardiology Progress Note - Subjective No new issues. He remains in aflutter. - Objective Vital Signs Temp Pulse Pulse Pulse Resp BP BP 01/06/19 20:46 98.6 F 90 18 01/06/19 15:50 97.8 F 77 18 01/06/19 13:36 63 63 101/66 103/68 01/06/19 12:00 98.0 F 63 18 BP Pulse Ox 01/06/19 20:46 96/51 L 96 01/06/19 15:50 113/78 93 L 01/06/19 13:36 01/06/19 12:00 108/64 93 L Admit Weight 190 lb Weight 190 lb 01/05/19 01/06/19 01/07/19 06:59 06:59 06:59 Intake Total 2760 700 Output Total 5 300 Balance 735 400 - Physical Examination General/Neuro: alert & oriented x3, NAD Neck: no JVD present Lungs: unlabored respirations Heart: other: (Irreg irreg) Abdomen: NT/ND Extremities: other: (no edema) - Labs Result Diagrams: 01/06/19 04:20 01/06/19 17:09 - Assessment/Plan 1. Atrial flutter. 2. S/P Hip replacement. 3. Hx of Paroxysmal afib PLAN: - YING/Cardioversion tomorrow. - We spoke about risks and benefits and he agrees to proceed.
[2019-01-06] MEDS: Lisinopril 5 MG TAB PO SCH (21:19)
[2019-01-07 06:05] LABS: Anion Gap 12 mmol/L (10-20); BUN (Urea Nitrogen) 12 mg/dL (8.4-25.7); Calc. Creatinine Clearance 131 mL/min (70-130); Calcium 8.9 mg/dL (7.8-10.44); Carbon Dioxide 27 mmol/L (23-31); Chloride 100 mmol/L (98-107); Estimated GFR-MDRD Greater than 90; Glucose 150 mg/dL (80-115); Potassium 4.2 mmol/L (3.5-5.1); Sodium 135 mmol/L (136-145)
--- NOTE | 2019-01-07 06:52 | PDOC.FM ---
- Subjective Subjective: Obdulio Gooden seen at bedside this morning. Patient got a little agitated overnight and remains in atrial flutter this morning, HR 120s upon examination. He is hemodynamically stable and is set to get YING and cardioversion today with Dr. Faustin. He is continuing to participate in PT. He denies fever, chills, chest pain, dyspnea, n/v. - Objective MAR Reviewed: Yes Vital Signs & Weight: Vital Signs (12 hours) Temp Pulse Resp BP Pulse Ox 01/07/19 03:05 99.3 F 100 18 109/75 93 L 01/06/19 23:55 98.8 F 100 18 124/78 95 01/06/19 21:19 90 01/06/19 20:46 98.6 F 90 18 96/51 L 96 Weight Admit Weight 86.183 kg Weight 86.183 kg I&O: 01/05/19 01/06/19 01/07/19 06:59 06:59 06:59 Intake Total 2760 1300 Output Total 2025 775 Balance 735 525 Result Diagrams: 01/06/19 04:20 01/07/19 05:27 Phys Exam - Physical Examination Constitutional: NAD HEENT: moist MMs, sclera anicteric Neck: supple, full ROM Respiratory: no wheezing, no rales, no rhonchi, clear to auscultation bilateral Cardiovascular: RRR, no significant murmur Gastrointestinal: soft, non-tender, no distention Musculoskeletal: no edema, pulses present Neurological: non-focal, normal sensation, moves all 4 limbs Psychiatric: normal affect, A&O x 3 Skin: no rash Dx/Plan (1) History of total left hip arthroplasty Code(s): Z96.642 - PRESENCE OF LEFT ARTIFICIAL HIP JOINT Status: Acute (2) Hypertension Code(s): I10 - ESSENTIAL (PRIMARY) HYPERTENSION Status: Chronic (3) Type 2 diabetes mellitus Status: Chronic (4) Atrial fibrillation Code(s): I48.91 - UNSPECIFIED ATRIAL FIBRILLATION Status: Chronic (5) GERD (gastroesophageal reflux disease) Code(s): K21.9 - GASTRO-ESOPHAGEAL REFLUX DISEASE WITHOUT ESOPHAGITIS Status: Chronic (6) Anxiety Code(s): F41.9 - ANXIETY DISORDER, UNSPECIFIED Status: Chronic (7) Atrial flutter by electrocardiogram Code(s): I48.92 - UNSPECIFIED ATRIAL FLUTTER Status: Acute - Plan Plan: 1) S/p left hip arthroplasty: 01/04/19 - Post Op Management and pain control per primary team - FMR consulted for medical management, appreciate consult 2) Atrial flutter with variable AV block - New diagnosis - 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 Faustin 2) Hypertension - Resuming home medications - Monitoring BPs closely 3) DM2 - Resuming home medications - Accuchecks ACHS 4) A fib - likely secondary to post procedural pain and elevated BPs - resuming home diltiazem - continue to monitor - starting pradaxa 5) Anxiety - home meds 6) GERD - protonix Addendum - Attending - Attending Attestation Date/Time: 01/07/19 6237 I personally evaluated the patient and discussed the management with Dr. Badillo. I agree with the History, Examination, Assessment and Plan documented above with any addition or exceptions noted below. YING and CV today. D/c afterward pending. Anticoag per cards.
[2019-01-07] MEDS: HYDROcodone/Acetaminophen 5/325 mg Tablet PO PRN ×3 (07:32→19:52)
[2019-01-07] MEDS: Sodium Chloride 0.9% 1,000 ML IV SCH ×3 (07:35→22:38)
[2019-01-07] MEDS: Bupropion 150 MG XL TAB PO SCH (07:38)
[2019-01-07] MEDS: Carvedilol 25 MG TAB PO SCH ×2 (07:38→19:55)
[2019-01-07] MEDS: Ferrous Gluconate 324 MG TAB PO SCH ×2 (07:44→18:20)
[2019-01-07] MEDS: Aspirin 81 mg Enteric Coated Tablet PO SCH ×2 (07:45→19:53)
[2019-01-07] MEDS: metFORMIN 500 MG TAB PO SCH ×2 (07:45→18:20)
[2019-01-07] MEDS: CeleCOXIB 100 MG CAP PO SCH (07:45)
[2019-01-07] MEDS: Cyanocobalamin (Vitamin B-12) 1,000 MCG TAB PO SCH ×2 (07:46→19:59)
[2019-01-07] MEDS: Multivitamin W/ Minerals 1 TAB PO SCH (07:46)
[2019-01-07] MEDS: Senokot S 8.6-50 MG TAB PO SCH ×2 (07:47→19:58)
[2019-01-07] MEDS: Ubidecarenone 50 MG CAP PO SCH (07:47)
[2019-01-07] MEDS: Dabigatran 150 mg Capsule PO SCH (14:10)
--- NOTE | 2019-01-07 14:50 | PRG ---
DATE OF SERVICE: 01/07/2019 SUBJECTIVE: Obdulio is a 68-year-old white male, who is postop day #2 from a left total hip arthroplasty. I believe Dr. Faustin was decided to go ahead and cardiovert the patient since his atrial flutter with variable block has been symptomatic and persistent. The patient had some mental status changes in last night after receiving Ambien and we have planned to discontinue that. OBJECTIVE: VITAL SIGNS: Temperature 99, pulse 102, respiratory rate 18 and nonlabored, O2 saturation is 90% on room air, and blood pressure is 113/71. NEUROLOGIC: He is alert, responsive, and appropriate. Short-term memory is intact, it was tested. No focal deficits are seen. The patient does have a little bit of the distant stare, and demeanor is stoic. His incision is closed. No erythema. No strikethrough. No bleeding. He is neurovascularly intact in the involved extremity. IMPRESSION: 1. A 68-year-old white male, postop day #3 left total hip arthroplasty. 2. Persistent atrial flutter with resultant tachycardia. 3. Mild mentation changes noted. This might be medication related. We will continue to observe. PLAN: Continue current care. We will receive cardioversion, and I believe Dr. Faustin will transfer him to telemetry for monitoring. We will continue to follow there. Job ID: [id number]
[2019-01-07 15:51] VITALS: BMI 24.3
[2019-01-07] MEDS ORDERED: PROPOFOL 0 ML ONE (15:57)
[2019-01-07] MEDS ORDERED: Fentanyl 100 MCG/2 ML VIAL ONE (16:06)
[2019-01-07] MEDS ORDERED: Ondansetron HCl/PF 4 MG/2 ML Vial IVP PRN (16:26)
[2019-01-07] MEDS ORDERED: PROPOFOL 200 MG/20 ML VIAL ONE (17:04)
--- NOTE | 2019-01-07 19:48 | OP ---
DATE OF SERVICE: 01/07/19 PREPROCEDURE DIAGNOSIS: Atrial flutter. PROCEDURES PERFORMED: DC cardioversion. SUMMARY: The patient is a pleasant 68-year-old gentleman who came to the PCU for cardioversion. YING was perfor med prior. Please see those notes for details. After anesthesia was achieved by the Anesthesiology Department, one single synchronized shock was del ivered at 100 joules successfully converting him from atrial flutter into sinus rhythm in the 70s. Th e patient tolerated the procedure well. RECOMMENDATIONS: 1. Hold Pradaxa indefinitely secondary to patient having a ligated appendage with no flow at all to the appendage. 2. Continue beta ramirez only and aspirin. 3. Discharge any time from the cardiac prospective. Followup in the office in one month.
[2019-01-07] MEDS: Lisinopril 5 MG TAB PO SCH (19:53)
[2019-01-07] MEDS: Zonisamide 25 MG CAP PO SCH (19:56)
[2019-01-07] MEDS: Citrucel 500 MG TAB PO SCH (19:56)
[2019-01-07] MEDS: Cyclobenzaprine 10 MG TAB PO PRN (23:06)
[2019-01-08] MEDS: HYDROcodone/Acetaminophen 5/325 mg Tablet PO PRN (03:04)
[2019-01-08] MEDS: CeleCOXIB 100 MG CAP PO SCH (10:00)
[2019-01-08] MEDS: Carvedilol 25 MG TAB PO SCH ×2 (10:01→19:52)
[2019-01-08] MEDS: Bupropion 150 MG XL TAB PO SCH (10:01)
[2019-01-08] MEDS: Ferrous Gluconate 324 MG TAB PO SCH ×2 (10:01→16:50)
[2019-01-08] MEDS: Cyanocobalamin (Vitamin B-12) 1,000 MCG TAB PO SCH ×2 (10:01→19:54)
[2019-01-08] MEDS: Aspirin 81 mg Enteric Coated Tablet PO SCH ×2 (10:05→19:51)
[2019-01-08] MEDS: Senokot S 8.6-50 MG TAB PO SCH ×2 (10:06→19:50)
[2019-01-08] MEDS: Multivitamin W/ Minerals 1 TAB PO SCH (10:07)
[2019-01-08] MEDS: metFORMIN 500 MG TAB PO SCH ×2 (10:07→16:50)
[2019-01-08] MEDS: Sodium Chloride 0.9% 1,000 ML IV SCH (10:09)
--- NOTE | 2019-01-08 10:40 | PDOC.FM ---
- Subjective Subjective: 68 yo male s/p day 4 left hip arthroplasty, patient reports doing well, doing PT when seen today. No CP, SOB, LE dvt symptoms, N/V. Pt received cardioversion successfully yesterday, as well as YING which Dr. Faustin showed ligated appendage with no flow allowing him to no longer need pradaxa. - Objective MAR Reviewed: Yes Vital Signs & Weight: Vital Signs (12 hours) Temp Pulse Resp BP BP Pulse Ox 01/08/19 07:35 98.1 F 79 16 112/67 96 01/08/19 03:27 98.7 F 81 18 114/64 95 01/08/19 00:31 16 01/07/19 23:30 98.4 F 84 16 98/56 L 95 Weight Admit Weight 86.183 kg Weight 86.183 kg I&O: 01/07/19 01/08/19 01/09/19 06:59 06:59 06:59 Intake Total 1300 1370 Output Total 775 Balance 525 1370 Result Diagrams: 01/06/19 04:20 01/07/19 05:27 Phys Exam - Physical Examination Constitutional: NAD HEENT: PERRLA, moist MMs Respiratory: no wheezing, clear to auscultation bilateral Cardiovascular: RRR, no significant murmur Gastrointestinal: soft, non-tender Musculoskeletal: no edema Neurological: non-focal, moves all 4 limbs Psychiatric: normal affect Dx/Plan (1) Atrial flutter by electrocardiogram Code(s): I48.92 - UNSPECIFIED ATRIAL FLUTTER Status: Acute (2) History of total left hip arthroplasty Code(s): Z96.642 - PRESENCE OF LEFT ARTIFICIAL HIP JOINT Status: Acute (3) Atrial fibrillation Code(s): I48.91 - UNSPECIFIED ATRIAL FIBRILLATION Status: Chronic (4) Hypertension Code(s): I10 - ESSENTIAL (PRIMARY) HYPERTENSION Status: Chronic (5) Type 2 diabetes mellitus Status: Chronic - Plan Plan: #left hip arthroplasty s/p day 4 -patient doing well, continue with PT -managed by ortho #atrial flutter with variable AV block -resolved, rate controlled at this time -Dr. Faustin provided cardioversion and YING yesterday -will hold pradaxa per Dr. Faustin recs HTN -stable -continue current management #DM@ -continue home meds Addendum - Attending - Attending Attestation Date/Time: 01/08/19 3742 I personally evaluated the patient and discussed the management with Dr. Klein I agree with the History, Examination, Assessment and Plan documented above with any addition or exceptions noted below. Aflutter s/p YING and cardioversion- in NSR now HTN- controlled T2DM- controlled.
[2019-01-08] MEDS: Ubidecarenone 50 MG CAP PO SCH (11:26)
[2019-01-08 15:58] LABS: Bilirubin Moderate (Negative); Blood, Urine Moderate (Negative); Clarity TURBID (Clear); Glucose, Urine (Dipstick) Negative (Negative); Leukocyte Small (Negative); Nitrite Negative (Negative); Protein, Urine (Dipstick) Trace mg/dL (Neg-Trace); Specific Gravity, Urine 1.025 (1.002-1.036); pH, Urine 6.5 (5.0-9.0)
[2019-01-08 16:00] LABS: Bacteria/HPF None Seen HPF (None Seen); Hyaline Casts/LPF 4-6 HYALINE CAST LPF (0-3 Hyaline); Pathc Cast-AUWi Flag 0.81 (0-2.49); RBC/HPF GREATER THAN 50-TNTC HPF (0-3); Squamous Epithelial 0-3 HPF (0-3)
--- NOTE | 2019-01-08 18:21 | PDOC.CTH ---
Cardiology Progress Note - Subjective The pt seen and examined. No overnight events. No cardiac complaints. - Objective Vital Signs Temp Pulse Resp BP BP Pulse Ox 01/08/19 15:51 98.0 F 79 16 117/74 97 01/08/19 11:19 98.5 F 75 16 101/64 95 01/08/19 07:35 98.1 F 79 16 112/67 96 Admit Weight 190 lb Weight 190 lb 01/07/19 01/08/19 01/09/19 06:59 06:59 06:59 Intake Total 1300 1370 Output Total 775 Balance 525 1370 - Physical Examination General/Neuro: alert & oriented x3 Neck: no JVD present Lungs: CTA Heart: RRR Abdomen: soft Extremities: other: (mild Lt edema) - Labs Result Diagrams: 01/06/19 04:20 01/07/19 05:27 - Assessment/Plan 1. Atrial flutter/Afib with s/p YING/DCCV on 01/07/2019 - regular rhythm; off OAC due to hx of ODILON ligation; cont. bblocker and ASA 81mg qd 2. S/P Lt Hip replacement - plan to tx to rehab; order ANURAG to LLE edema 3. DM type 2 4. HTN - stable * From Cardiac standpoint, the pt is stable to tx to rehab. * The pt will F/u with Dr Faustin within 1 month. Pt. seen and eval. by me. I agree with the /P by the Defect Cutter. He does complain of left knee pain and this is tender and swollen. The area around the left hip incision is erythematous. Chest clear. RRR. gjm Review of Systems - Review of Systems Constitutional: reports: no symptoms reported EENTM: reports: no symptoms reported Respiratory: reports: no symptoms reported Cardiac (ROS): reports: no symptoms reported ABD/GI: reports: no symptoms reported : reports: no symptoms reported
[2019-01-08] MEDS: Lisinopril 5 MG TAB PO SCH (19:53)
[2019-01-08] MEDS: Citrucel 500 MG TAB PO SCH (19:59)
[2019-01-08] MEDS: Zonisamide 25 MG CAP PO SCH (19:59)
[2019-01-08] MEDS: Cyclobenzaprine 10 MG TAB PO PRN (21:15)
[2019-01-09] MEDS: Sodium Chloride 0.9% 1,000 ML IV SCH ×2 (00:17→09:18)
[2019-01-09] MEDS: HYDROcodone/Acetaminophen 5/325 mg Tablet PO PRN ×2 (03:12→08:58)
[2019-01-09 04:14] VITALS: BP 129/72
--- NOTE | 2019-01-09 07:16 | PDOC.FM ---
- Subjective Subjective: Patient is seen at bedside. No significant complaints overnight. Patient's UA yesterday for feeling of incomplete voiding and urge showed ketones and WBCs as well as RBCs, but no bacteria. No fever, REAGAN, SOB. Working with PT, going well. - Objective MAR Reviewed: Yes Vital Signs & Weight: Vital Signs (12 hours) Temp Pulse Resp BP BP Pulse Ox 01/09/19 04:14 98.3 F 73 18 129/72 96 01/09/19 00:33 97.8 F 74 16 117/65 96 01/08/19 20:00 98.5 F 82 18 133/81 97 01/08/19 19:53 82 133/81 Weight Admit Weight 86.183 kg Weight 86.183 kg I&O: 01/08/19 01/09/19 01/10/19 06:59 06:59 06:59 Intake Total 1370 1200 Balance 1370 1200 Result Diagrams: 01/06/19 04:20 01/07/19 05:27 Phys Exam - Physical Examination Constitutional: NAD HEENT: PERRLA Respiratory: no wheezing, clear to auscultation bilateral Cardiovascular: RRR, no significant murmur Gastrointestinal: soft, non-tender left lateral hip mild erythema of skin, improved per pen lines around red Neurological: normal sensation, moves all 4 limbs Psychiatric: normal affect, A&O x 3 Dx/Plan (1) History of total left hip arthroplasty Code(s): Z96.642 - PRESENCE OF LEFT ARTIFICIAL HIP JOINT Status: Acute (2) Atrial fibrillation Code(s): I48.91 - UNSPECIFIED ATRIAL FIBRILLATION Status: Chronic (3) Hypertension Code(s): I10 - ESSENTIAL (PRIMARY) HYPERTENSION Status: Chronic (4) Type 2 diabetes mellitus Status: Chronic - Plan Plan: #s/p left hip arthroplasty on 01/04/19 -patient doing well, continue with PT -managed by ortho #atrial flutter with variable AV block -resolved, rate controlled at this time -Dr. Faustin provided cardioversion and YING 01/07 -will hold pradaxa per Dr. Faustin recs -continue with BB and ASA #Hx of afib HTN -stable -continue current management #DM2 -stable -continue home meds Pt stable and ready for discharge from FMR perspective. Addendum - Attending - Attending Attestation Date/Time: 01/09/19 6462 I personally evaluated the patient and discussed the management with Dr. Klein. I agree with the History, Examination, Assessment and Plan documented above with any addition or exceptions noted below. Stable for d/c
[2019-01-09 08:14] VITALS: TEMP 98
[2019-01-09] MEDS: Carvedilol 25 MG TAB PO SCH (08:58)
[2019-01-09] MEDS: Aspirin 81 mg Enteric Coated Tablet PO SCH (09:03)
[2019-01-09] MEDS: Bupropion 150 MG XL TAB PO SCH (09:03)
[2019-01-09] MEDS: Multivitamin W/ Minerals 1 TAB PO SCH (09:04)
[2019-01-09] MEDS: metFORMIN 500 MG TAB PO SCH (09:04)
[2019-01-09] MEDS: Ubidecarenone 50 MG CAP PO SCH (09:18)
[2019-01-09] MEDS: Ferrous Gluconate 324 MG TAB PO SCH (09:18)
[2019-01-09] MEDS: Senokot S 8.6-50 MG TAB PO SCH (09:18)
[2019-01-09] MEDS: Cyanocobalamin (Vitamin B-12) 1,000 MCG TAB PO SCH (09:18)
[2019-01-09] MEDS: CeleCOXIB 100 MG CAP PO SCH (09:18)
--- NOTE | 2019-01-10 14:51 | DIS ---
DATE OF ADMISSION: 01/04/2019 DATE OF DISCHARGE: 01/09/2019 DISCHARGE DISPOSITION: Home. ADMISSION DIAGNOSIS: End-stage bicompartmental osteoarthritis, left hip. DISCHARGE DIAGNOSES: 1. End-stage bicompartmental osteoarthritis, left hip. 2. Atrial flutter. PROCEDURES PERFORMED: Left total hip arthroplasty and synchronized cardioversion. CONSULTANTS: Dr. Alessandro Faustin and [facility] and [facility]. BRIEF CLINICAL HISTORY: Obdulio is a 68-year-old white male, who was admitted to [facility], who underwent elective total hip arthroplasty on date of admission. Postoperatively, he did well for the first night, but second evening, he developed atrial flutter sorry and changed his discharge diagnosis, atrial flutter, thinking he developed atrial flutter, been going in and out of it for most of the evening and had a rapid ventricular response. The patient had a known variable block and had been anticoagulated for his aflutter, but during this hospitalization, Dr. Faustin evaluated the patient and decided that cardioversion would probably be best. Therefore, he was taken down and cardioverted on hospital day 3. Postoperatively, he had a little bit of confusion, but he had no significant metabolic changes and he cleared up relatively well by the time of discharge. At the time of discharge, the patient is afebrile. He is ambulatory without assistance. He is tolerating regular diet and he is voiding without difficulty. His incision is clean and closed without any erythema and he is cogent and clear and grossly nonfocal and appropriate. We will be happy to see the patient on an as-needed basis between now and his next scheduled appointment in 2 to 3 weeks. CONDITION ON DISCHARGE: Stable. PROGNOSIS: Good. Job ID: [id number]
--- NOTE | 2019-01-10 22:22 | EKG ---
Test Reason : STAT Blood Pressure : / mmHG Vent. Rate : 093 BPM Atrial Rate : 090 BPM P-R Int : 000 ms QRS Dur : 100 ms QT Int : 380 ms P-R-T Axes : 000 -12 180 degrees QTc Int : 472 ms Undetermined rhythm Probable NSR with baseline artifact. Abnormal ECG When compared with ECG of 05-JAN-2019 03:04, Current undetermined rhythm precludes rhythm comparison, needs review T wave inversion more evident in Lateral leads QT has lengthened Confirmed by Susy BATEMAN ([id number]) on 01/10/2019 10:22:39 PM Referred By: Confirmed By:Susy BATEMAN
--- NOTE | 2019-01-10 22:23 | EKG ---
Test Reason : STAT Blood Pressure : / mmHG Vent. Rate : 103 BPM Atrial Rate : 258 BPM P-R Int : 000 ms QRS Dur : 102 ms QT Int : 344 ms P-R-T Axes : 000 -12 133 degrees QTc Int : 450 ms Atrial flutter with variable A-V block Abnormal ECG When compared with ECG of 05-JAN-2019 18:07, (Unconfirmed) Previous ECG has undetermined rhythm, needs review Confirmed by Susy BATEMAN ([id number]) on 01/10/2019 10:23:01 PM Referred By: Confirmed By:Susy BATEMAN
--- NOTE | 2019-01-10 22:28 | EKG ---
Test Reason : Blood Pressure : / mmHG Vent. Rate : 075 BPM Atrial Rate : 250 BPM P-R Int : 000 ms QRS Dur : 106 ms QT Int : 414 ms P-R-T Axes : 000 -04 067 degrees QTc Int : 462 ms Atrial flutter with variable A-V block Abnormal ECG When compared with ECG of 05-JAN-2019 19:19, (Unconfirmed) No significant change was found Confirmed by Susy BATEMAN ([id number]) on 01/10/2019 10:27:52 PM Referred By: [email or web address] Confirmed By:Susy BATEMAN
== END 2019-01-09 11:00 | disposition home or self-care (01) | DRG 470 ==
LOC: SJJU 01-04 05:32
PROVIDERS: ADMIT Orthopaedic Surgery; ATTEND Orthopaedic Surgery
PROC: 0SRB04A Replacement of Left Hip Joint with Ceramic on Polyethylene Synthetic Substitute, Uncemented, Open Approach (ICD-10-PCS; principal; 2019-01-04)
PROC: 5A2204Z Restoration of Cardiac Rhythm, Single (ICD-10-PCS; 2019-01-07)
DX: M16.12 Unilateral primary osteoarthritis, left hip (principal); I48.92 Unspecified atrial flutter; D62 Acute posthemorrhagic anemia; I44.30 Unspecified atrioventricular block; I10 Essential (primary) hypertension; E11.9 Type 2 diabetes mellitus without complications; I25.10 Atherosclerotic heart disease of native coronary artery without angina pectoris; M47.816 Spondylosis without myelopathy or radiculopathy, lumbar region; I48.0 Paroxysmal atrial fibrillation; G89.29 Other chronic pain; K21.9 Gastro-esophageal reflux disease without esophagitis; I69.398 Other sequelae of cerebral infarction; R53.1 Weakness; R82.90 Unspecified abnormal findings in urine; F41.8 Other specified anxiety disorders; Z87.891 Personal history of nicotine dependence; Z95.1 Presence of aortocoronary bypass graft; Z79.01 Long term (current) use of anticoagulants; Z79.84 Long term (current) use of oral hypoglycemic drugs; Z79.82 Long term (current) use of aspirin
CPT/HCPCS: 36415; 36416; 80048; 81001; 85025; 85027; 85610; 86850; 86900; 86901; 87081; 87086; 92960; 93005; 93010; 93312; J0131; J0690; J1650; J2001; J2250; J2405; J2704; J2795; J3010; J3370; J3490; J7050

== ENCOUNTER 2021-11-25 08:16 | Outpatient (CLI) | payer MEDICARE, OTHER | END 2021-11-25 08:17 | disposition home or self-care (01) | LOC: RAD 08:16 | PROVIDERS: ATTEND Physician Assistant Medical | DX: R11.0 Nausea (principal); R53.1 Weakness; R53.81 Other malaise; R63.30 Feeding difficulties, unspecified; R63.4 Abnormal weight loss; K21.9 Gastro-esophageal reflux disease without esophagitis; K22.89 Other specified disease of esophagus | CPT/HCPCS: 74220 ==

== ENCOUNTER 2021-11-28 12:01 | Day surgery (SDC) | payer MEDICARE, OTHER ==
[2021-11-27 12:25] VITALS: BMI 18.7
[2021-11-28] MEDS ORDERED: ceFAZolin 2 GM/Dextrose 50 ML IVPB ONE (15:21)
[2021-11-28] MEDS ORDERED: Lidocaine 1% PF 5 ML VIAL ONE (15:27)
[2021-11-28] MEDS ORDERED: PROPOFOL 200 MG/20 ML VIAL ONE (15:27)
== END 2021-11-28 17:09 | disposition home or self-care (01) ==
LOC: SDC 12:01
PROVIDERS: ATTEND Internal Medicine Gastroenterology
PROC: 0DH63UZ Insertion of Feeding Device into Stomach, Percutaneous Approach (ICD-10-PCS; principal; 2021-11-28)
DX: E46 Unspecified protein-calorie malnutrition (principal); R63.0 Anorexia; R63.4 Abnormal weight loss; R63.39 Other feeding difficulties; I48.91 Unspecified atrial fibrillation; I10 Essential (primary) hypertension; M19.90 Unspecified osteoarthritis, unspecified site; E11.9 Type 2 diabetes mellitus without complications; Z68.1 Body mass index [BMI] 19.9 or less, adult; Z79.01 Long term (current) use of anticoagulants; Z79.52 Long term (current) use of systemic steroids; Z79.84 Long term (current) use of oral hypoglycemic drugs; Z79.899 Other long term (current) drug therapy; Z91.018 Allergy to other foods; Z91.040 Latex allergy status; Z95.5 Presence of coronary angioplasty implant and graft; Z95.1 Presence of aortocoronary bypass graft
CPT/HCPCS: 93005; 93010; B4087; J0690; J2704

== ENCOUNTER 2022-02-03 11:29 | Outpatient (CLI) | payer MEDICARE, OTHER ==
[2022-02-03 12:50] LABS: Hemoglobin 9.9 g/dL (13.5-17.5); Mean Corpuscular HGB CONC 32.4 g/dL (32.0-36.0); Mean Corpuscular Hemoglobin 31.5 pg (27.0-33.0); Mean Corpuscular Volume 97.5 fl (81.2-95.1); Mean Platelet Volume 11.8 fl (7.4-10.4); Platelet Count 168 10x3/uL (150-450); RBC Distribution Width 14.9 % (11.5-14.5); Red Blood Cell (RBC) Count 3.14 10x6/uL (4.32-5.72); White Blood Cell (WBC) Count 5.7 10x3/uL (3.5-10.5)
[2022-02-03 13:13] LABS: MDiff Complete? YES
[2022-02-03 13:16] LABS: Anion Gap 17 mmol/L (10-20); BUN (Urea Nitrogen) 19 mg/dL (8.4-25.7); Calc. Creatinine Clearance 0 mL/min (70-130); Calcium 8.2 mg/dL (7.8-10.44); Carbon Dioxide 29 mmol/L (23-31); Chloride 99 mmol/L (98-107); Glucose 152 mg/dL (83-110); Potassium 4.3 mmol/L (3.5-5.1); Sodium 141 mmol/L (136-145)
[2022-02-03 13:17] LABS: Band 1 % (5-11); Eosinophils 3 % (0-10); Lymphocytes 22 % (21-51); Monocytes 12 % (0-10); Neutrophil 62 % (42-75)
[2022-02-03 13:18] LABS: Platelet Morphology Comment Appears Adequate; RBC Morphology Normal
[2022-02-03 20:00] LABS: SARS-CoV-2 PCR by NAA Not Detected (NotDetected)
== END 2022-02-03 11:30 | disposition home or self-care (01) ==
LOC: LABBT 11:29
PROVIDERS: ATTEND Internal Medicine Cardiovascular Disease
DX: Z01.818 Encounter for other preprocedural examination (principal); Z20.822 Contact with and (suspected) exposure to COVID-19
CPT/HCPCS: 80048; 85025; 93005; U0003; U0005; 93010

== ENCOUNTER 2022-02-05 08:02 | Day surgery (SDC) | payer MEDICARE, OTHER ==
[2022-02-04 09:23] VITALS: BMI 20.9
[2022-02-05] MEDS ORDERED: PROPOFOL 20 ML ONE (09:56)
== END 2022-02-05 11:24 | disposition home or self-care (01) ==
LOC: SDC 08:02
PROVIDERS: ATTEND Internal Medicine Cardiovascular Disease
PROC: 5A2204Z Restoration of Cardiac Rhythm, Single (ICD-10-PCS; principal; 2022-02-05)
DX: I48.4 Atypical atrial flutter (principal); I48.0 Paroxysmal atrial fibrillation; I25.10 Atherosclerotic heart disease of native coronary artery without angina pectoris; E11.621 Type 2 diabetes mellitus with foot ulcer; L97.529 Non-pressure chronic ulcer of other part of left foot with unspecified severity; E11.51 Type 2 diabetes mellitus with diabetic peripheral angiopathy without gangrene; N52.9 Male erectile dysfunction, unspecified; E43 Unspecified severe protein-calorie malnutrition; Z68.21 Body mass index [BMI] 21.0-21.9, adult; Z86.16 Personal history of COVID-19; Z79.01 Long term (current) use of anticoagulants; Z79.82 Long term (current) use of aspirin; Z79.84 Long term (current) use of oral hypoglycemic drugs; Z79.899 Other long term (current) drug therapy; Z79.890 Hormone replacement therapy; Z88.8 Allergy status to other drugs, medicaments and biological substances; Z91.018 Allergy to other foods; Z91.040 Latex allergy status; Z95.1 Presence of aortocoronary bypass graft; Z95.5 Presence of coronary angioplasty implant and graft
CPT/HCPCS: 92960; 93005; 93010; J2704

== ENCOUNTER 2022-05-07 11:26 | Outpatient (CLI) | payer MEDICARE, OTHER | END 2022-05-07 11:27 | disposition home or self-care (01) | LOC: LABBT 11:26 | PROVIDERS: ATTEND Ophthalmology Retina Specialist | DX: Z20.822 Contact with and (suspected) exposure to COVID-19 (principal) | CPT/HCPCS: 87811 ==

== ENCOUNTER 2022-05-08 09:11 | Day surgery (SDC) | payer MEDICARE, OTHER ==
[2022-05-07 14:18] VITALS: BMI 20.9
[~2022-05-08 09:11] MED LIST changes: +Fluorouracil 100 MG, Enoxaparin Sodium 25 MG, EPINEPHrine 0.3 MG in Ophthalmic Irrigati... IRR SCH; -ISOVUE-370 76%-LOCM 1 ML ONE; +Midazolam HCl 2 mg/2 ml Vial ONE; +fentaNYL Citrate/PF 100 MCG/2 ML SYRINGE ONE
[2022-05-08] MEDS ORDERED: Cyclopentolate 1% Opth Drop 2 ML BOT ONE (09:22)
[2022-05-08] MEDS ORDERED: Phenylephrine 2.5% Ophth Soln 5 ML BOT ONE (09:22)
[2022-05-08] MEDS ORDERED: Bupivacaine 0.75% 10 ML VIAL ONE (10:54)
[2022-05-08] MEDS ORDERED: Lidocaine 1% PF 5 ML VIAL ONE (10:54)
[2022-05-08] MEDS ORDERED: Maxitrol 0.1% Opth Oint 3.5 GM TUBE ONE (10:54)
[2022-05-08] MEDS ORDERED: Lidocaine 4% PF 5 ML AMP ONE (10:54)
[2022-05-08] MEDS ORDERED: Triamcinolone 40 MG/ML VIAL ONE (10:54)
[2022-05-08] MEDS ORDERED: Enoxaparin Sodium 30 MG/0.3 ML SYRINGE ONE (10:54)
[2022-05-08] MEDS ORDERED: PROPOFOL 200 MG/20 ML VIAL ONE (10:54)
[2022-05-08] MEDS ORDERED: CEFAZOLIN 1 GM VIAL ONE (10:54)
[2022-05-08] MEDS ORDERED: Acetaminophen 500 MG TAB ONE (12:39)
== END 2022-05-08 12:55 | disposition home or self-care (01) ==
LOC: SDC 09:11
PROVIDERS: ATTEND Ophthalmology Retina Specialist
PROC: 08T53ZZ Resection of Left Vitreous, Percutaneous Approach (ICD-10-PCS; principal; 2022-05-08)
DX: H33.002 Unspecified retinal detachment with retinal break, left eye (principal); Z88.8 Allergy status to other drugs, medicaments and biological substances; Z91.018 Allergy to other foods; Z91.040 Latex allergy status; Z95.1 Presence of aortocoronary bypass graft; Z95.5 Presence of coronary angioplasty implant and graft
CPT/HCPCS: J0171; J0690; J1650; J2250; J2704; J3301; J3490; J9190

== ENCOUNTER 2022-06-11 08:25 | Outpatient (CLI) | payer MEDICARE, OTHER | END 2022-06-11 08:26 | disposition home or self-care (01) | LOC: TBSIIMAG 08:25 | PROVIDERS: ATTEND Neurological Surgery | DX: M54.2 Cervicalgia (principal); M47.812 Spondylosis without myelopathy or radiculopathy, cervical region | CPT/HCPCS: 72141 ==

== ENCOUNTER 2024-07-11 13:03 | Inpatient (IN) | payer MEDICARE, OTHER ==
[2024-07-11] MEDS ORDERED: Dextrose 50% Abboject 50 ML SYRINGE SLOW IVP PRN (13:39)
[2024-07-11] MEDS ORDERED: Insulin Regular, Human 100 UNIT/ML 10 ML VIAL SC PRN (13:39)
[2024-07-11] MEDS ORDERED: Glucagon 1 MG/ML KIT IM PRN (13:39)
[2024-07-11] MEDS ORDERED: Ondansetron ODT 4 MG TAB PO PRN (13:39)
[2024-07-11] MEDS ORDERED: Acetaminophen 325 MG TAB PO PRN (13:39)
[2024-07-11] MEDS ORDERED: Dextrose 5% in Water 1,000 ML IV PRN (13:39)
[2024-07-11 14:28] VITALS: BMI 22.4
[2024-07-11 14:29] LABS: #Basophils 0.07 10x3/uL (0.0-0.2); %Basophils 1.2 % (0.0-1.0); %Eosinophils 1.2 % (0.0-10.0); %Lymphocytes 17.6 % (21.0-51.0); %Monocytes 15.3 % (0.0-10.0); %Neutrophils 64.2 % (42.0-75.0); Hematocrit 35.5 % (42.0-52.0); Hemoglobin 11.9 g/dL (14.0-18.0); Mean Corpuscular HGB CONC 33.5 g/dL (32.0-36.0); Mean Corpuscular Hemoglobin 30.1 pg (27.0-31.0); Mean Corpuscular Volume 89.9 fL (78.0-98.0); Mean Platelet Volume 9.5 fL (7.4-10.4); Platelet Count 228 10x3/uL (130-400); RBC Distribution Width 13.1 % (11.5-14.5); Red Blood Cell (RBC) Count 3.95 mill/uL (4.70-6.10)
[2024-07-11 14:52] LABS: ALT (SGPT) 10 U/L (8-55); AST (SGOT) 16 U/L (5-34); Albumin 3.5 g/dL (3.4-4.8); Alkaline Phosphatase 55 U/L (40-110); Anion Gap 14 mmol/L (10-20); BUN (Urea Nitrogen) 13 mg/dL (8.4-25.7); Bilirubin, Total 0.3 mg/dL (0.2-1.2); Calc. Creatinine Clearance 86 mL/min (70-130); Carbon Dioxide 20 mmol/L (23-31); Chloride 98 mmol/L (98-107); Estimated GFR 93; Globulin 2.4 g/dL (2.4-3.5); Glucose 121 mg/dL (83-110); Potassium 4.2 mmol/L (3.5-5.1); Protein, Total 5.9 g/dL (5.8-8.1); Sodium 128 mmol/L (136-145)
[2024-07-11] MEDS ORDERED: Potassium Chloride 20 MEQ TAB PO PRN ×3 (19:12→19:15)
[2024-07-11] MEDS ORDERED: Magnesium 2 GM/50 ML(in water) 2 GM in Premix 1 BAG IVPB PRN (19:13)
[2024-07-11] MEDS ORDERED: Magnesium Sulfate 1 GM, Admixture Fee 1 EACH in Sodium Chloride 0.9% 100 ML IVPB PRN ×2 (19:14→19:17)
[2024-07-11] MEDS ORDERED: Potassium Chloride 10 MEQ TAB PO PRN (19:16)
[2024-07-11] MEDS ORDERED: Metoprolol Tartrate 5 MG (5 mL) VIAL IVP PRN (19:21)
[2024-07-11 20:43] LABS: Magnesium 1.7 mg/dL (1.6-2.6)
[2024-07-11] MEDS: Atenolol 25 MG TAB PO SCH (21:14)
[2024-07-11] MEDS: Famotidine 20 MG TAB PO SCH (21:15)
[2024-07-11] MEDS: Dofetilide 0.125 MG CAP PO SCH (21:15)
[2024-07-12 04:42] LABS: #Basophils 0.07 10x3/uL (0.0-0.2); %Basophils 1.3 % (0.0-1.0); %Eosinophils 1.6 % (0.0-10.0); %Lymphocytes 17.1 % (21.0-51.0); %Neutrophils 61.6 % (42.0-75.0); Hematocrit 34.9 % (42.0-52.0); Hemoglobin 11.1 g/dL (14.0-18.0); Mean Corpuscular HGB CONC 31.8 g/dL (32.0-36.0); Mean Corpuscular Hemoglobin 29.1 pg (27.0-31.0); Mean Corpuscular Volume 91.6 fL (78.0-98.0); Mean Platelet Volume 9.7 fL (7.4-10.4); Platelet Count 215 10x3/uL (130-400); RBC Distribution Width 13.2 % (11.5-14.5); Red Blood Cell (RBC) Count 3.81 mill/uL (4.70-6.10)
[2024-07-12 04:50] LABS: Magnesium 1.8 mg/dL (1.6-2.6)
[2024-07-12 04:57] LABS: Anion Gap 11 mmol/L (10-20); BUN (Urea Nitrogen) 11 mg/dL (8.4-25.7); Calc. Creatinine Clearance 78 mL/min (70-130); Calcium 9.4 mg/dL (7.8-10.44); Carbon Dioxide 25 mmol/L (23-31); Chloride 105 mmol/L (98-107); Estimated GFR 90; Glucose 125 mg/dL (83-110); Potassium 3.8 mmol/L (3.5-5.1); Sodium 137 mmol/L (136-145)
[2024-07-12] MEDS: Levothyroxine Sodium 50 MCG TAB PO SCH (06:50)
[2024-07-12] MEDS: Tamsulosin HCl 0.4 MG CAP PO SCH (09:30)
[2024-07-12] MEDS: Potassium Chloride 20 MEQ TAB PO SCH (09:31)
[2024-07-12] MEDS: Aspirin 81 mg Enteric Coated Tablet PO SCH (09:31)
[2024-07-12] MEDS: Magnesium 2 GM/50 ML(in water) 2 GM in Premix 1 BAG IVPB SCH (09:41)
[2024-07-12 11:11] VITALS: BMI 22.4
[2024-07-12] MEDS: FLU (Fluad Triv) TS24-25 (65UP)/MF59C/PF 45 MCG/0.5 ML Syringe IM ONE (15:21)
[2024-07-12] MEDS: Dofetilide 0.125 MG CAP PO SCH (20:40)
[2024-07-13 05:05] LABS: Anion Gap 11 mmol/L (10-20); BUN (Urea Nitrogen) 16 mg/dL (8.4-25.7); Calc. Creatinine Clearance 83 mL/min (70-130); Calcium 9.5 mg/dL (7.8-10.44); Carbon Dioxide 25 mmol/L (23-31); Chloride 105 mmol/L (98-107); Estimated GFR 92; Glucose 149 mg/dL (83-110); Magnesium 1.9 mg/dL (1.6-2.6); Potassium 4.1 mmol/L (3.5-5.1); Sodium 137 mmol/L (136-145)
[2024-07-13] MEDS ORDERED: PROPOFOL 20 ML ONE (07:02)
[2024-07-13 08:10] VITALS: TEMP 97.8
[2024-07-13] MEDS ORDERED: Lidocaine 2% PF 100 mg/5 ml Syringe ONE (08:53)
[2024-07-13 13:27] VITALS: BP 128/68
== END 2024-07-13 14:50 | disposition home or self-care (01) | DRG 310 ==
LOC: 2NO 13:03
PROVIDERS: ADMIT Hospitalist; ATTEND Internal Medicine
PROC: 5A2204Z Restoration of Cardiac Rhythm, Single (ICD-10-PCS; principal; 2024-07-13)
DX: I48.19 Other persistent atrial fibrillation (principal); I25.10 Atherosclerotic heart disease of native coronary artery without angina pectoris; E11.9 Type 2 diabetes mellitus without complications; E11.40 Type 2 diabetes mellitus with diabetic neuropathy, unspecified; G20.A1 Parkinson's disease without dyskinesia, without mention of fluctuations; Z95.5 Presence of coronary angioplasty implant and graft; Z98.890 Other specified postprocedural states; Z91.040 Latex allergy status; Z88.8 Allergy status to other drugs, medicaments and biological substances; Z95.1 Presence of aortocoronary bypass graft
CPT/HCPCS: 36415; 36416; 80048; 83735; 85025; 92960; 93005; 93010; 97139; J2003; J2704; J3475; J8499

== ENCOUNTER 2024-07-28 10:30 | Outpatient (CLI) | payer MEDICARE, OTHER | END 2024-07-28 10:31 | disposition home or self-care (01) | LOC: MRI 10:30 | PROVIDERS: ATTEND Nurse Practitioner Family | DX: I87.312 Chronic venous hypertension (idiopathic) with ulcer of left lower extremity (principal); E11.621 Type 2 diabetes mellitus with foot ulcer; L97.522 Non-pressure chronic ulcer of other part of left foot with fat layer exposed; E11.51 Type 2 diabetes mellitus with diabetic peripheral angiopathy without gangrene; M86.9 Osteomyelitis, unspecified | CPT/HCPCS: 87070; 87077; 87205 ==

== ENCOUNTER 2025-08-22 11:00 | Outpatient (CLI) | payer MEDICARE, OTHER | END 2025-08-22 11:01 | disposition home or self-care (01) | LOC: PET 11:00 | PROVIDERS: ATTEND Internal Medicine | DX: Z12.5 Encounter for screening for malignant neoplasm of prostate (principal); C01 Malignant neoplasm of base of tongue; C10.8 Malignant neoplasm of overlapping sites of oropharynx; M86.9 Osteomyelitis, unspecified; D72.821 Monocytosis (symptomatic); R39.81 Functional urinary incontinence; R97.8 Other abnormal tumor markers; D50.0 Iron deficiency anemia secondary to blood loss (chronic); Z79.899 Other long term (current) drug therapy; R91.8 Other nonspecific abnormal finding of lung field | CPT/HCPCS: 78815; A9552 ==

== ENCOUNTER 2025-08-29 09:21 | Outpatient (CLI) | payer MEDICARE, OTHER | END 2025-08-29 09:22 | disposition home or self-care (01) | LOC: SCSMRI 09:21 | PROVIDERS: ATTEND Internal Medicine | DX: Z12.5 Encounter for screening for malignant neoplasm of prostate (principal); C01 Malignant neoplasm of base of tongue; C10.8 Malignant neoplasm of overlapping sites of oropharynx; D72.821 Monocytosis (symptomatic); R39.81 Functional urinary incontinence; R97.8 Other abnormal tumor markers; D50.0 Iron deficiency anemia secondary to blood loss (chronic); M86.9 Osteomyelitis, unspecified; M46.54 Other infective spondylopathies, thoracic region; M46 Other inflammatory spondylopathies; M46.56 Other infective spondylopathies, lumbar region; M51.84 Other intervertebral disc disorders, thoracic region; M51.85 Other intervertebral disc disorders, thoracolumbar region; M51.86 Other intervertebral disc disorders, lumbar region; Z79.899 Other long term (current) drug therapy | CPT/HCPCS: 72157; 72158 ==

== ENCOUNTER 2025-09-06 19:56 | Inpatient (IN) | payer MEDICARE, OTHER ==
[2025-09-07 00:37] LABS: #Basophils 0.07 10x3/uL (0.0-0.2); #Eosinophils 0.04 10x3/uL (0.0-0.7); #Monocytes 1.05 10x3/uL (0.11-0.59); #Neutrophils 11.05 10x3/uL (1.40-6.50); %Basophils 0.5 % (0.0-1.0); %Eosinophils 0.3 % (0.0-10.0); %Lymphocytes 10.8 % (21.0-51.0); %Monocytes 7.6 % (0.0-10.0); %Neutrophils 80.5 % (42.0-75.0); Hematocrit 32.0 % (42.0-52.0); Hemoglobin 9.8 g/dL (14.0-18.0); Mean Corpuscular Hemoglobin 28.2 pg (27.0-31.0); Mean Corpuscular Volume 92.0 fL (78.0-98.0); Platelet Count 148 10x3/uL (130-400); Red Blood Cell (RBC) Count 3.48 mill/uL (4.70-6.10); White Blood Cell (WBC) Count 13.73 10x3/uL (4.8-10.8)
[2025-09-07] MEDS: oxyCODONE 5 MG TAB PO PRN (00:49)
[2025-09-07 00:50] LABS: ALT (SGPT) Less than 7 U/L (Less than 45); AST (SGOT) 18 U/L (11-34); Albumin 2.6 g/dL (3.1-4.5); Alkaline Phosphatase 62 U/L (40-110); Anion Gap 12 mmol/L (10-20); BUN (Urea Nitrogen) 23 mg/dL (8.4-25.7); Bilirubin, Total 0.5 mg/dL (0.3-1.2); Calc. Creatinine Clearance 0 mL/min (70-130); Calcium 8.3 mg/dL (7.8-10.44); Carbon Dioxide 18 mmol/L (23-31); Chloride 111 mmol/L (98-107); Globulin 3.0 g/dL (2.4-3.5); Glucose 86 mg/dL (83-110); Potassium 3.4 mmol/L (3.5-5.1); Sodium 138 mmol/L (136-145)
[2025-09-07 01:09] VITALS: BMI 16.2
[2025-09-07] MEDS ORDERED: Glucagon 1 MG/ML KIT IM PRN (01:35)
[2025-09-07] MEDS ORDERED: Dextrose 50% Abboject 50 ML SYRINGE SLOW IVP PRN (01:35)
[2025-09-07] MEDS: Vancomycin 1.5 GM / NS 500ML VIAL-2-BAG IVPB SCH (01:53)
[2025-09-07 03:03] LABS: Bacteria/HPF None Seen HPF (None Seen); CAUTI Indications for Culture Dysuria,urgency,freq; Glucose, Urine (Dipstick) Normal (Negative); Leukocyte 500 Leu/uL (Negative); Protein, Urine (Dipstick) 100 mg/dL (Neg-Trace); RBC/HPF Greater than 50 HPF (0-3); Specific Gravity, Urine 1.048 (1.002-1.036); WBC/HPF Greater than 50 HPF (0-3)
[2025-09-07 03:05] LABS: Urine Culture Reflex Yes Yes
[2025-09-07] MEDS ORDERED: Ondansetron PF 4 MG/2 ML Vial IVP PRN ×2 (08:21→16:26)
[2025-09-07] MEDS ORDERED: VANCOMYCIN 1.75 GM/350 ML BAG IVPB SCH (09:00)
[2025-09-07 09:39] VITALS: BMI 16.2
[2025-09-07] MEDS: Famotidine 20 MG TAB PO SCH (10:25)
[2025-09-07] MEDS: Enoxaparin 30 MG (0.3 mL) SYRINGE SC SCH (10:25)
[2025-09-07] MEDS: Vancomycin 1.5 GM / NS 500 ML VIAL-2-BAG IVPB SCH (11:11)
[2025-09-07] MEDS ORDERED: diphenhydrAMINE 25 MG CAP PO PRN (16:26)
[2025-09-07] MEDS ORDERED: diphenhydrAMINE 50 MG/ML VIAL IM PRN (16:26)
[2025-09-07] MEDS ORDERED: diphenhydrAMINE 50 MG/ML VIAL IVP PRN (16:26)
[2025-09-07] MEDS ORDERED: Communication Order-Pharmacy FS SCH (16:30)
[2025-09-07] MEDS: Morphine 50 MG in Sodium Chloride 0.9% 45 ML IV SCH (18:01)
[2025-09-08 05:15] LABS: Vancomycin, Random 20.9 ug/mL (See Comment)
[2025-09-08 05:16] LABS: Anion Gap 7 mmol/L (10-20); BUN (Urea Nitrogen) 21 mg/dL (8.4-25.7); Calc. Creatinine Clearance 63 mL/min (70-130); Calcium 7.8 mg/dL (7.8-10.44); Carbon Dioxide 20 mmol/L (23-31); Chloride 111 mmol/L (98-107); Glucose 109 mg/dL (83-110); Potassium 3.5 mmol/L (3.5-5.1); Sodium 134 mmol/L (136-145)
[2025-09-08 05:21] LABS: Hematocrit 27.6 % (42.0-52.0); Hemoglobin 8.6 g/dL (14.0-18.0); Mean Corpuscular Hemoglobin 28.0 pg (27.0-31.0); Mean Corpuscular Volume 89.9 fL (78.0-98.0); Platelet Count 127 10x3/uL (130-400); Red Blood Cell (RBC) Count 3.07 mill/uL (4.70-6.10); White Blood Cell (WBC) Count 8.08 10x3/uL (4.8-10.8)
[2025-09-08] MEDS: Zonisamide 100 MG CAP PO SCH (08:33)
[2025-09-08] MEDS: Pantoprazole 40 MG DR.TAB PO SCH (08:33)
[2025-09-08] MEDS: Vancomycin HCl 750 MG in Sodium Chloride 0.9% 250 ML 250 ML IVPB SCH (08:37)
[2025-09-08] MEDS: PNEUMOC 20-VAL CONJ-DIP CRM/PF 0.5 ML SYRINGE IM ONE (14:28)
[2025-09-08] MEDS: Fluconazole 100 MG TAB PO SCH (14:33)
[2025-09-08] MEDS: Vancomycin HCl 500 MG in NaCl 0.9% 100 ML IV SCH (17:13)
[2025-09-09] MEDS ORDERED: Senokot S 8.6-50 MG TAB PO PRN (10:55)
[2025-09-09] MEDS: Baclofen 10 MG TAB PO SCH (16:40)
[2025-09-10 05:38] LABS: Vancomycin, Random 18.2 ug/mL (See Comment)
[2025-09-10 05:44] LABS: Calc. Creatinine Clearance 69.0 mL/min (70-130)
[2025-09-10] MEDS: Baclofen 10 MG TAB PO SCH (12:10)
[2025-09-11 05:39] LABS: Actual Bicarbonate (HCO3v) 21.3 mEq/L (22-28); Base Excess -2.1 mEq/L (-2.0 to +3.0); Calcium, Ionized (venous) 1.10 mmol/L (1.16-1.32); Chloride (VBG) 109 mmol/L (98-106); Hematocrit 30.9 % (42.0-52.0); Hematocrit-VBG 32 % (42.0-52.0); Hemoglobin 9.5 g/dL (14.0-18.0); Hemoglobin (Hb) 10.8 g/dL (12.6-17.4); Mean Corpuscular Hemoglobin 28.0 pg (27.0-31.0); Mean Corpuscular Volume 91.2 fL (78.0-98.0); Platelet Count 207 10x3/uL (130-400); Potassium (VBG) 3.66 mmol/L (3.70-5.30); Red Blood Cell (RBC) Count 3.39 mill/uL (4.70-6.10); Sodium 139 mmol/L (133-146); White Blood Cell (WBC) Count 7.45 10x3/uL (4.8-10.8)
[2025-09-11 05:57] LABS: Anion Gap 9 mmol/L (10-20); BUN (Urea Nitrogen) 25 mg/dL (8.4-25.7); Calc. Creatinine Clearance 78 mL/min (70-130); Calcium 8.5 mg/dL (7.8-10.44); Carbon Dioxide 22 mmol/L (23-31); Chloride 112 mmol/L (98-107); Glucose 139 mg/dL (83-110); Potassium 3.8 mmol/L (3.5-5.1); Sodium 139 mmol/L (136-145)
[2025-09-11] MEDS: Senokot S 8.6-50 MG TAB PO PRN (17:27)
[2025-09-12 04:20] LABS: #Basophils 0.04 10x3/uL (0.0-0.2); #Eosinophils 0.19 10x3/uL (0.0-0.7); #Monocytes 0.73 10x3/uL (0.11-0.59); #Neutrophils 4.52 10x3/uL (1.40-6.50); %Basophils 0.6 % (0.0-1.0); %Eosinophils 2.9 % (0.0-10.0); %Lymphocytes 17.0 % (21.0-51.0); %Monocytes 11.0 % (0.0-10.0); %Neutrophils 68.2 % (42.0-75.0); Hematocrit 27.2 % (42.0-52.0); Hemoglobin 8.6 g/dL (14.0-18.0); Mean Corpuscular Hemoglobin 27.8 pg (27.0-31.0); Mean Corpuscular Volume 88.0 fL (78.0-98.0); Platelet Count 245 10x3/uL (130-400); Red Blood Cell (RBC) Count 3.09 mill/uL (4.70-6.10); White Blood Cell (WBC) Count 6.63 10x3/uL (4.8-10.8)
[2025-09-12 04:41] LABS: Anion Gap 8 mmol/L (10-20); BUN (Urea Nitrogen) 28 mg/dL (8.4-25.7); Calc. Creatinine Clearance 83 mL/min (70-130); Calcium 8.4 mg/dL (7.8-10.44); Carbon Dioxide 24 mmol/L (23-31); Chloride 110 mmol/L (98-107); Glucose 130 mg/dL (83-110); Potassium 4.1 mmol/L (3.5-5.1); Sodium 138 mmol/L (136-145)
[2025-09-12] MEDS ORDERED: Iopamidol 370 76% 100 ML VIAL ONE (09:19)
[2025-09-13 04:07] LABS: #Basophils 0.06 10x3/uL (0.0-0.2); #Eosinophils 0.27 10x3/uL (0.0-0.7); #Monocytes 0.78 10x3/uL (0.11-0.59); #Neutrophils 5.63 10x3/uL (1.40-6.50); %Basophils 0.7 % (0.0-1.0); %Eosinophils 3.3 % (0.0-10.0); %Lymphocytes 16.7 % (21.0-51.0); %Monocytes 9.6 % (0.0-10.0); %Neutrophils 69.2 % (42.0-75.0); Hematocrit 28.4 % (42.0-52.0); Hemoglobin 8.8 g/dL (14.0-18.0); Mean Corpuscular Hemoglobin 27.4 pg (27.0-31.0); Mean Corpuscular Volume 88.5 fL (78.0-98.0); Platelet Count 248 10x3/uL (130-400); Red Blood Cell (RBC) Count 3.21 mill/uL (4.70-6.10); White Blood Cell (WBC) Count 8.14 10x3/uL (4.8-10.8)
[2025-09-13 04:37] LABS: Anion Gap 9 mmol/L (10-20); BUN (Urea Nitrogen) 31 mg/dL (8.4-25.7); Calc. Creatinine Clearance 70 mL/min (70-130); Calcium 8.4 mg/dL (7.8-10.44); Carbon Dioxide 23 mmol/L (23-31); Chloride 108 mmol/L (98-107); Glucose 130 mg/dL (83-110); Potassium 4.4 mmol/L (3.5-5.1); Sodium 136 mmol/L (136-145)
[2025-09-14] MEDS: Morphine IR 10 MG/5 ML UDCUP PO PRN (01:50)
[2025-09-14 05:02] LABS: #Basophils 0.07 10x3/uL (0.0-0.2); #Eosinophils 0.26 10x3/uL (0.0-0.7); #Monocytes 0.67 10x3/uL (0.11-0.59); #Neutrophils 3.44 10x3/uL (1.40-6.50); %Basophils 1.2 % (0.0-1.0); %Eosinophils 4.5 % (0.0-10.0); %Lymphocytes 22.5 % (21.0-51.0); %Monocytes 11.6 % (0.0-10.0); %Neutrophils 59.5 % (42.0-75.0); Hematocrit 28.0 % (42.0-52.0); Hemoglobin 8.8 g/dL (14.0-18.0); Mean Corpuscular Hemoglobin 28.1 pg (27.0-31.0); Mean Corpuscular Volume 89.5 fL (78.0-98.0); Platelet Count 250 10x3/uL (130-400); Red Blood Cell (RBC) Count 3.13 mill/uL (4.70-6.10); White Blood Cell (WBC) Count 5.78 10x3/uL (4.8-10.8)
[2025-09-14 05:21] LABS: Anion Gap 7 mmol/L (10-20); BUN (Urea Nitrogen) 28 mg/dL (8.4-25.7); Calc. Creatinine Clearance 66 mL/min (70-130); Calcium 8.3 mg/dL (7.8-10.44); Carbon Dioxide 24 mmol/L (23-31); Chloride 113 mmol/L (98-107); Glucose 110 mg/dL (83-110); Potassium 4.4 mmol/L (3.5-5.1); Sodium 140 mmol/L (136-145)
[2025-09-15 04:34] LABS: #Basophils 0.06 10x3/uL (0.0-0.2); #Eosinophils 0.27 10x3/uL (0.0-0.7); #Monocytes 0.56 10x3/uL (0.11-0.59); #Neutrophils 3.10 10x3/uL (1.40-6.50); %Basophils 1.1 % (0.0-1.0); %Eosinophils 5.0 % (0.0-10.0); %Lymphocytes 25.7 % (21.0-51.0); %Monocytes 10.4 % (0.0-10.0); %Neutrophils 57.2 % (42.0-75.0); Hematocrit 27.1 % (42.0-52.0); Hemoglobin 8.3 g/dL (14.0-18.0); Mean Corpuscular Hemoglobin 28.0 pg (27.0-31.0); Mean Corpuscular Volume 91.6 fL (78.0-98.0); Platelet Count 258 10x3/uL (130-400); Red Blood Cell (RBC) Count 2.96 mill/uL (4.70-6.10); White Blood Cell (WBC) Count 5.41 10x3/uL (4.8-10.8)
[2025-09-15 04:46] LABS: Vancomycin, Random 14.5 ug/mL (See Comment)
[2025-09-15 04:58] LABS: Anion Gap 10 mmol/L (10-20); BUN (Urea Nitrogen) 33 mg/dL (8.4-25.7); Calc. Creatinine Clearance 71 mL/min (70-130); Calcium 8.3 mg/dL (7.8-10.44); Carbon Dioxide 23 mmol/L (23-31); Chloride 108 mmol/L (98-107); Glucose 140 mg/dL (83-110); Potassium 4.1 mmol/L (3.5-5.1); Sodium 137 mmol/L (136-145)
[2025-09-16 05:32] LABS: #Basophils 0.07 10x3/uL (0.0-0.2); #Eosinophils 0.22 10x3/uL (0.0-0.7); #Monocytes 0.63 10x3/uL (0.11-0.59); #Neutrophils 4.03 10x3/uL (1.40-6.50); %Basophils 1.1 % (0.0-1.0); %Eosinophils 3.3 % (0.0-10.0); %Lymphocytes 24.2 % (21.0-51.0); %Monocytes 9.6 % (0.0-10.0); %Neutrophils 61.3 % (42.0-75.0); Hematocrit 27.9 % (42.0-52.0); Hemoglobin 8.5 g/dL (14.0-18.0); Mean Corpuscular Hemoglobin 27.8 pg (27.0-31.0); Mean Corpuscular Volume 91.2 fL (78.0-98.0); Platelet Count 257 10x3/uL (130-400); Red Blood Cell (RBC) Count 3.06 mill/uL (4.70-6.10); White Blood Cell (WBC) Count 6.57 10x3/uL (4.8-10.8)
[2025-09-16 05:46] LABS: Anion Gap 12 mmol/L (10-20); BUN (Urea Nitrogen) 34 mg/dL (8.4-25.7); Calc. Creatinine Clearance 67 mL/min (70-130); Calcium 8.7 mg/dL (7.8-10.44); Carbon Dioxide 25 mmol/L (23-31); Chloride 107 mmol/L (98-107); Glucose 114 mg/dL (83-110); Potassium 4.7 mmol/L (3.5-5.1); Sodium 139 mmol/L (136-145)
[2025-09-16] MEDS: Melatonin 3 MG TAB PO PRN (20:29)
[2025-09-19] MEDS: Acetaminophen 325 MG TAB PO PRN (00:53)
[2025-09-19] MEDS: Ketorolac Tromethamine 30 MG (1 mL) VIAL IVP SCH (00:55)
[2025-09-20 04:49] LABS: #Basophils 0.08 10x3/uL (0.0-0.2); #Eosinophils 0.22 10x3/uL (0.0-0.7); #Monocytes 0.61 10x3/uL (0.11-0.59); #Neutrophils 3.97 10x3/uL (1.40-6.50); %Basophils 1.3 % (0.0-1.0); %Eosinophils 3.5 % (0.0-10.0); %Lymphocytes 22.5 % (21.0-51.0); %Monocytes 9.7 % (0.0-10.0); %Neutrophils 62.7 % (42.0-75.0); Hematocrit 27.0 % (42.0-52.0); Hemoglobin 8.5 g/dL (14.0-18.0); Mean Corpuscular Hemoglobin 27.8 pg (27.0-31.0); Mean Corpuscular Volume 88.2 fL (78.0-98.0); Platelet Count 292 10x3/uL (130-400); Red Blood Cell (RBC) Count 3.06 mill/uL (4.70-6.10); White Blood Cell (WBC) Count 6.32 10x3/uL (4.8-10.8)
[2025-09-20 05:02] LABS: Anion Gap 14 mmol/L (10-20); BUN (Urea Nitrogen) 41 mg/dL (8.4-25.7); Calc. Creatinine Clearance 61 mL/min (70-130); Calcium 8.6 mg/dL (7.8-10.44); Carbon Dioxide 24 mmol/L (23-31); Chloride 106 mmol/L (98-107); Glucose 122 mg/dL (83-110); Potassium 4.2 mmol/L (3.5-5.1); Sodium 140 mmol/L (136-145)
[2025-09-20 05:05] LABS: Vancomycin, Random 14.6 ug/mL (See Comment)
[2025-09-20 16:56] VITALS: BP 129/67; TEMP 98.7
== END 2025-09-20 15:00 | DRG 871 ==
LOC: MSONC 21:16
PROVIDERS: ADMIT Internal Medicine; ATTEND Family Medicine
PROC: 0T9B70Z Drainage of Bladder with Drainage Device, Via Natural or Artificial Opening (ICD-10-PCS; 2025-09-06)
PROC: 3E03329 Introduction of Other Anti-infective into Peripheral Vein, Percutaneous Approach (ICD-10-PCS; 2025-09-07)
PROC: 05HY33Z Insertion of Infusion Device into Upper Vein, Percutaneous Approach (ICD-10-PCS; principal; 2025-09-14)
DX: A41.02 Sepsis due to Methicillin resistant Staphylococcus aureus (principal); E43 Unspecified severe protein-calorie malnutrition; G06.1 Intraspinal abscess and granuloma; J18.9 Pneumonia, unspecified organism; N39.0 Urinary tract infection, site not specified; Z68.1 Body mass index [BMI] 19.9 or less, adult; C79.51 Secondary malignant neoplasm of bone; Z66 Do not resuscitate; R33.9 Retention of urine, unspecified; M48.05 Spinal stenosis, thoracolumbar region; M46.45 Discitis, unspecified, thoracolumbar region; I25.10 Atherosclerotic heart disease of native coronary artery without angina pectoris; E03.9 Hypothyroidism, unspecified; E11.40 Type 2 diabetes mellitus with diabetic neuropathy, unspecified; G20.A1 Parkinson's disease without dyskinesia, without mention of fluctuations; D64.9 Anemia, unspecified; E87.6 Hypokalemia; I48.0 Paroxysmal atrial fibrillation; C02.9 Malignant neoplasm of tongue, unspecified; E78.5 Hyperlipidemia, unspecified; Z95.5 Presence of coronary angioplasty implant and graft; Z95.1 Presence of aortocoronary bypass graft; Z88.8 Allergy status to other drugs, medicaments and biological substances; Z91.040 Latex allergy status
CPT/HCPCS: 36415; 36416; 71045; 71260; 80048; 80053; 80202; 81001; 82140; 82565; 82805; 83605; 85025; 85027; 86141; 87040; 87077; 87086; 93306; J1650; J1885; J2185; J2248; J2270; J2543; J3373; J7030; J7050; Q0167; Q9967